=== PATIENT | female | born 1995 | race Caucasian/White ===

== ENCOUNTER 2017-09-27 13:51 | Day surgery (SDC) | payer OTHER, SELFPAY ==
[2017-09-07 16:06] VITALS: BMI 34.4
--- NOTE | 2017-09-27 | PATH_ITS ---
[facility] Accession Number: [id number] . 01 Material submitted: . PERITONEAL BIOPSY . 02 Diagnosis: Peritoneum, Biopsy: Fibrovascular tissue with no evidence of neoplasia or endometriosis. [facility]/09/30/2017 . 02 Electronically signed: . Nia Bass MD, Pathologist NPI- [id number] . 01 Gross description: . Received in formalin, labeled peritoneal biopsy, is a piece of membranous and fatty tissue (1.0 x 0.7 x 0.3 cm). The resection margin is inked black. Bisected and entirely submitted in cassette A1. ([id number]) /[facility] . 02 Microscopic: . Additional levels were examined. . 02 Pathologist provided ICD-10: R10.2 . 02 CPT . 694370 Performed at: 01 [facility] [address] [id number] MD Raimundo Patton MD Phone: [phone] Performed at: 02 [facility] [address] [place] [id number] MD Twin Song MD Phone: [phone]
[2017-09-27 14:20] VITALS: BP 117/69; PULSE 90; RESP 14; TEMP 36.2; O2SAT 99; BMI 34.4
[2017-09-27] MEDS: LACTATED RINGERS 1,000 ML 42 ML IV (14:24)
--- NOTE | 2017-09-27 15:25 | SUR.OPER ---
Lithotomy on padded OR bed, head on pillow, arms secured on padded arm boards at <90 degrees abduction. Legs secured in padded yellow fins stirrups.
[2017-09-27] MEDS: BUPIVACAINE 0.5% W/ EPI (PF) VIAL 30 ML INJ (15:38)
--- NOTE | 2017-09-27 16:01 | PM.PREOP ---
Pre-operative Note Interval Note Pre-op Check: Yes History & Physical Reviewed by Physician and Yes Exam Performed Changes: No H&P completed within 30 days and has changed as indicated here:: See note on 09/09/2017
[2017-09-27] MEDS: MEPERIDINE 25 MG/ML SYRINGE IV (16:04)
[2017-09-27] MEDS: fentaNYL 100 MCG/2 ML INJ 50 MCG IV ×2 (16:04→16:15)
[2017-09-27 16:05] VITALS: BP 114/79; BP 116/69; PULSE 100; PULSE 105; RESP 20; RESP 22; TEMP 36.7; O2SAT 97; O2SAT 98
--- NOTE | 2017-09-27 16:11 | P.OP_ITS ---
Operative Date/Time/Diagnoses Date of procedure: 09/27/17 Time of procedure: 16:04 Pre-op diagnosis: Pelvic pain, dysmenorrhea, and dyspareunia Post-op diagnosis: same Procedure & Clinicians Procedure: Laparoscopy with biopsy of peritoneum with drainage of ovarian cyst Same procedure as scheduled: Yes Indications: Long history of pelvic pain, dysmenorrhea, dyspareunia patient wanted to know if she had endometriosis Surgeon: Mary Ann Addison Click Yes if Unassisted: Yes Anesthesia Type: General Operative Notes Findings: Essentially normal pelvis with normal uterus tubes and ovaries. No definitive endometriosis, no scar tissue, no internal hernias. Normal appearing appendix and liver edge. A left ovarian cyst was drained of clear fluid. The left fallopian tube was scarred in a pocket behind the ovary in the broad ligament but unclear etiology almost appeared natural. Closure Type: primary Specimen(s): other (Peritoneal biopsy) Estimated Blood Loss (mL): 2 Blood products transfused: none Procedure in detail: Patient was brought to the operating room where she underwent general anesthesia. [facility] and prepped and draped in usual sterile fashion. Antibiotics were not indicated. Pulsatile stockings were in place and functional. Warming was with blankets. A single-tooth tenaculum was placed on the anterior lip of the cervix and the cervix dilated to #6 Hegar dilator. The Lashawn uterine manipulator was placed and balloon inflated with 3 mL of air. The area of the incisions were injected with half percent Marcaine with epinephrine. An incision was made in the umbilicus with a scalpel and the Verres needle placed in the abdomen. Confirmation of correct placement of the needle was performed by withdrawing on the syringe and then allowing fluid to fall freely through the needle. The abdomen was insufflated to 4 L of CO2. A 5 mm trocar was placed under direct visualization. 2 other 5 mm trochars were placed in the right and left lower quadrant. The left ovarian cyst was drained of clear fluid. An incision was made in the pocket of the left broad ligament in an attempt to free the left fallopian tube. A biopsy was performed of the peritoneum on the anterior bladder flap. Adequate hemostasis was noted. The CO2 was allowed to escape from the abdomen. The trochars were removed. Skin was closed with 4-0 Vicryl. The patient went to recovery room in good condition. Complications: none Condition: stable Disposition: same day surgery
[2017-09-27 16:14] VITALS: BP 131/60; PULSE 104; RESP 16; O2SAT 100
[2017-09-27] MEDS: LORazepam 2 MG/ML SYRINGE 0.25 MG IV (16:22)
[2017-09-27 16:23] VITALS: BP 101/55; PULSE 97; RESP 20; TEMP 36.9; O2SAT 100
[2017-09-27 16:28] VITALS: BP 108/67; PULSE 91; RESP 18; TEMP 36.8; O2SAT 99
[2017-09-27] MEDS: OXYCODONE/ACETAMINOPHEN 5/325 TABLET 1 TAB PO (16:44)
[2017-09-27 16:46] VITALS: BP 103/70; PULSE 99; RESP 16; TEMP 36.4; O2SAT 100
== END 2017-09-27 17:12 | disposition home or self-care (01) ==
PROVIDERS: Visit Provider Specialist
PROC: (CPT 49320; principal; 2017-09-27 15:00)
DX: N83.202 Unspecified ovarian cyst, left side (principal)
CPT/HCPCS: 49321; 49322; 88305; J1100; J2060; J2175; J2250; J2405; J2704; J3010

== ENCOUNTER → 2018-01-21 07:48 | Outpatient (CLI) | payer OTHER, SELFPAY ==
--- NOTE | 2018-01-21 | DI.MRI.S_ITS ---
PROCEDURE: MR PELIS WO/W CON INDICATIONS: Other specified disorders of urethra TECHNIQUE: Noncontrast coronal HASTE; 3-plane nonbreath-hold T2 FSE, axial T1 FSE with and without fat saturation obtained through the urethra and bladder. After the administration of contrast, axial and sagittal VIBE or 2-D FLASH with fat saturation obtained through the urethra and bladder. Optional diffusion weighted imaging or ADC may be performed. COMPARISON: None. FINDINGS: Image quality: Excellent. Urethra: Urethra is normal in caliber. No diverticula or masses identified. Genitalia: Vaginal wall are normal in thickness. Images through the upper vagina demonstrate no Franchesca's duct cyst. More inferior images through the vagina and labia demonstrate no Bartholin's gland cyst. Peritoneum and bowel: No pathologic free pelvic fluid. Visualized inferior colon loops, rectum, and anus appear normal. Note is made of a set of 2 adjacent left adnexal cysts the largest of which appears simple in character and measures up to 3.6 cm transverse, 4.3 cm AP and 3.4 cm craniocaudad. The immediate adjacent smaller cyst measures up to 3.0 cm in maximal dimension. That there is no sign of cyst rupture or hemorrhagic cyst contents. Soft tissues: Ischiorectal fossa appears normal in morphology. No adenopathy by size criteria. IMPRESSION: 1. Source of painful urination is not found. No urethral diverticulum is present. The bladder wall appears normal, no deep pelvic inflammation or underlying neoplasm is suspected. 2. Incidental finding is made of a set of 2 adjacent dominant left ovarian region cysts, the largest of which measures up to 4.3 cm in maximal dimension in the immediately adjacent smaller cyst measures up to 3.0 cm. There is no sign of recent cyst rupture or hemorrhage into this cyst. Dictated by: Dakota Cervantes M.D. on 01/21/2018 at 11:26 Approved by: Dakota Cervantes M.D. on 01/21/2018 at 11:31
== END ==
PROVIDERS: Visit Provider Urology
DX: N36.8 Other specified disorders of urethra (principal); N83.202 Unspecified ovarian cyst, left side
CPT/HCPCS: 72197; A9579

== ENCOUNTER 2018-02-03 10:02 | Emergency (ER) | payer OTHER, SELFPAY ==
[2018-02-03 10:36] VITALS: BP 109/65; PULSE 85; RESP 16; TEMP 36.5; O2SAT 100
[2018-02-03] MEDS: ONDANSETRON 4 MG/2 ML INJ IV (12:06)
[2018-02-03] MEDS: SODIUM CHLORIDE 0.9% 1,000 ML 1000 ML IV (12:06)
[2018-02-03 12:36] LABS: Add Manual Diff / Slide Review NO; Basophils Percent Auto 0.8 % (0-2); Eosinophils Percent Auto 1.7 % (2-4); Hemoglobin 13.2 g/dL (12.0-16.0); Lymphocytes Percent Auto 39.1 % (25-40); Mean Corpuscular HGB Conc 34.7 % (30-36); Mean Corpuscular Hemoglobin 30.1 PG (26-34); Mean Corpuscular Volume 86.5 fL (80-100); Monocytes Percent Auto 5.2 % (3-14); Neutrophils Absolute Auto 4000 /uL (3000-5900); Neutrophils Percent Auto 53.2 % (50-75); Platelet Count 369 X10^3/uL (150-400); Red Blood Cell Count 4.39 X10^6/uL (4.0-5.2); Red Cell Distribution Width 12.3 % (11.6-14.8); White Blood Cell Count 7.5 X10^3/uL (4.5-11.0)
--- NOTE | 2018-02-03 12:41 | ED_ITS ---
HPI - Nausea/Vomiting/Diarrhea General Chief complaint: Nausea/Vomiting/Diarrhea Stated complaint: THROWING UP Time Seen by Provider: 02/03/18 12:02 Source: patient Mode of arrival: ambulatory Limitations: no limitations History of Present Illness HPI Narrative: This is a 22-year-old female with 12 hr of nausea, vomiting and diarrhea. Patient was sweaty overnight but no documented fevers. Her nausea is a little bit better at this time. She states that [place] [employer] and can't call in sick to work without a work note so came to the ER. Patient states she has had a little bit urinary frequency and dysuria but this has been a chronic problem with recurrent bladder infections. Patient is not having any flank or back pain. She feels sore in her abdomen but no real pain. Patient denies any other symptoms, no other medical problems. She has had laparoscopic surgery for evaluation for endometriosis. Related Data Home Medications Medication Instructions Recorded Confirmed omeprazole 40 mg capsule,delayed 40 mg PO DAILY PRN 09/09/17 02/03/18 release drospirenone-ethinyl estradiol 1 tab PO QPM 02/03/18 02/03/18 [Germania (28)] ibuprofen 200 mg PO PRN PRN 02/03/18 02/03/18 Previous Rx's Medication Instructions Recorded lidocaine 2 % mucosal jelly 1 applictn TOP ONCE PRN #30 ml 09/01/17 amitriptyline 10 mg tablet 10 mg PO BEDTIME #30 tab 10/08/17 cephalexin [Keflex] 500 mg PO Q12H #6 cap 02/03/18 ondansetron HCl [Zofran] 4 mg PO QID PRN #5 tab 02/03/18 Allergies Allergy/AdvReac Type Severity Reaction Status Date / Time No Known Drug Allergies Allergy Verified 10/08/17 16:01 Review of Systems Review of Systems All systems reviewed & are unremarkable except as noted in HPI and below Constitutional Denies fever(s) and Reports night sweats Gastrointestinal Gastrointestinal: Denies abdominal pain, Denies melena, Denies hematochezia, Denies constipation, Reports diarrhea, Reports nausea and Reports vomiting Genitourinary Reports urinary frequency, Reports dysuria, Denies flank pain and Denies urinary urgency PFSH Medical History Depression (Acute) Dysuria (Acute) History of pyelonephritis (Acute) Migraines (Acute) Recurrent UTI (Acute) Surgical History History of cystoscopy (Acute) Social History Smoking Status: Current every day smoker Exam Narrative Exam Narrative: GENERAL: Alert and oriented x three, Well-nourished, well- appearing female in mild distress HEENT: Head normocephalic, atraumatic, EOMI, pupils reactive, face symmetric, moist mucous membranes NECK: Supple, full range of motion CARDIOVASCULAR: Regular rate and rhythm without murmurs, rubs or gallops. RESPIRATORY: Breath sounds equal bilaterally, no wheezes rales or rhonchi. ABDOMEN: Soft, nontender. Normoactive bowel sounds all 4 quadrants. No guarding or rebound, rigidity, no mass : No CVA tenderness EXTREMITIES: Normal range of motion, no clubbing or edema. Neurovascularly intact NEUROLOGICAL: Cranial nerves II through XII grossly intact. Moving all extremities SKIN: Warm, dry, no petechiae, no rashes or lesions. Initial Vital Signs Initial Vital Signs: Vital Signs Temperature 97.7 F 02/03/18 10:36 Pulse Rate 85 02/03/18 10:36 Respiratory Rate 16 02/03/18 10:36 Blood Pressure 109/65 02/03/18 10:36 Pulse Oximetry 100 02/03/18 10:36 Course Orders Ordered: ED Orders 02/03/18 11:45 Complete Blood Count AUTO DIFF Stat Comprehensive Metabolic Panel Stat Lipase Stat 02/03/18 13:07 Urine Culture Stat Urine Microscopic Stat Discontinued Medications Sodium Chloride (Normal Saline 0.9%) 1,000 mls @ 1,000 mls/hr IV BOLUS ONE Stop: 02/03/18 13:02 Last Infusion: 02/03/18 13:53 Dose: 0 mls/hr Admin: 02/03/18 12:06 Dose: 1,000 mls/hr Ondansetron HCl (Zofran) 4 mg IV NOW ONE Stop: 02/03/18 12:04 Last Admin: 02/03/18 12:06 Dose: 4 mg Vital Signs - 8 hr 02/03/18 12:55 11/29/18 13:47 02/03/18 14:19 Pulse Rate 76 72 75 Respiratory Rate 18 15 16 Blood Pressure 120/76 Blood Pressure [Left Arm] 118/56 L 111/57 L Pulse Oximetry 99 97 98 MDM - Nausea/Vomiting/Diarrhea Lab Data Attestation: I reviewed the patient's lab results. Result diagrams: 02/03/18 11:45 02/03/18 11:45 Lab Results 02/03/18 02/03/18 02/03/18 Range/Units 11:45 11:45 13:07 WBC 7.5 (4.5-11.0) X10^3/uL RBC 4.39 (4.0-5.2) X10^6/uL Hgb 13.2 (12.0-16.0) g/dL Hct 38.0 (36-46) % MCV 86.5 (80-100) fL MCH 30.1 (26-34) PG MCHC 34.7 (30-36) % RDW 12.3 (11.6-14.8) % Plt Count 369 (150-400) X10^3/uL Neut % (Auto) 53.2 (50-75) % Lymph % (Auto) 39.1 (25-40) % [place] % (Auto) 5.2 (3-14) % Eos % (Auto) 1.7 L (2-4) % Baso % (Auto) 0.8 (0-2) % Neut # (Auto) 4000 (3544-8066) /uL Sodium 141 (137-145) mmol/L Potassium 4.2 (3.4-5.1) mmol/L Chloride 106 (98-107) mmol/L Carbon Dioxide 22 (22-32) mmol/L BUN 10 (7-17) mg/dL Creatinine 0.70 (0.52-1.04) mg/dL Estimated GFR > 60.0 (>60) mL/min BUN/Creatinine Ratio 14.3 (6-22) Glucose 91 (70-100) mg/dL Calcium 9.2 (8.4-10.2) mg/dL Total Bilirubin 0.7 (0.2-1.3) mg/dL AST 36 (14-36) IU/L ALT 43 (9-52) IU/L Alkaline Phosphatase 73 (38-126) U/L Total Protein 7.6 (6.3-8.2) g/dL Albumin 4.3 (3.5-5.0) g/dL Globulin 3.3 (1.7-4.1) g/dL Albumin/Globulin Ratio 1.3 (1.0-2.8) Lipase 49 (23-300) U/L Urine RBC None seen (0-5/HPF) Urine WBC 1-5/hpf (0-5/HPF) Ur Squamous Epith Cells 1-5 /hpf Amorphous Sediment 1+ Urine Bacteria Few (2-10) H (None) Urine Mucus 1+ H (Negative) Ur Culture Indicated? Specimen cultured Micro UA Comment Not Reportable Point of Care Testing Test Results Negative Urine Dip Bedside Urine Glucose Negative Bedside Urine Bilirubin - Negative Bedside Urine Ketone - Negative Urine Specific [place]gins 1.015 Bedside Urine Occult Blood - Negative Bedside Urine pH 7.0 Bedside Urine Protein - Negative Bedside Urine Urobilinogen - Negative Bedside Urine Nitrite + Positive Bedside Urine Leukocytes +/- 15 Esterase MDM Narrative Medical decision making narrative: Urine shows signs consistent with UTI, patient states she has had recurrent UTIs does not know what antibiotic she has been on. She does not know if she has had any resistance. Lab work otherwise appears fairly normal patient has not had any emesis in the department. Started oral antibiotics with some Zofran for nausea. Patient to follow up as outpatient. Discussed reasons to return and signs and symptoms to watch for. Discharge Plan Departure Patient Disposition: Home Clinical Impression: Vomiting and diarrhea, UTI (urinary tract infection) Discharge Date/Time: 02/03/18 14:20 Interventions: ED Discharge Assessment Last Done: 02/03/18 14:19 Instructions: DI for Vomiting -- Adult Activity Restrictions/Additional Instructions: Follow-up in the next 3-5 days for recheck and repeat evaluation of your urine. Your urine was sent for culture today. Take antibiotics until they are completely gone. Take Zofran sublingually every 6 hr as needed for nausea or right before you take your antibiotics. Return to the emergency department for persistent fevers, rapidly worsening symptoms, persistent vomiting, black or bloody stools, back or flank pain or other new or concerning symptoms. Prescriptions: New ondansetron HCl [Zofran] 4 mg tablet 4 mg PO QID PRN (Reason: nausea and vomiting) Qty: 5 RF: 0 cephalexin [Keflex] 500 mg capsule 500 mg PO Q12H Qty: 6 RF: 0 No Action lidocaine HCl 2 % jelly 1 applictn TOP ONCE PRN (Reason: pain) Qty: 30 RF: 3 omeprazole 40 mg capsule,delayed release(DR/EC) 40 mg PO DAILY PRN (Reason: Heartburn) RF: 0 amitriptyline 10 mg tablet 10 mg PO BEDTIME Qty: 30 RF: 11 ibuprofen 200 mg Tablet 200 mg PO PRN PRN (Reason: pain) RF: 0 drospirenone-ethinyl estradiol [Germania (28)] 3-0.03 mg tablet 1 tab PO QPM RF: 0
[2018-02-03 12:42] LABS: Alanine Aminotransferase 43 IU/L (9-52); Albumin 4.3 g/dL (3.5-5.0); Albumin Globulin Ratio 1.3 (1.0-2.8); Alkaline Phosphatase 73 U/L (38-126); Aspartate Aminotransferase 36 IU/L (14-36); BUN Creatinine Ratio 14.3 (6-22); Bilirubin Total 0.7 mg/dL (0.2-1.3); Blood Urea Nitrogen 10 mg/dL (7-17); Calcium 9.2 mg/dL (8.4-10.2); Carbon Dioxide 22 mmol/L (22-32); Chloride 106 mmol/L (98-107); Estimated Glomerular Filt Rate > 60.0 mL/min (>60); Globulin 3.3 g/dL (1.7-4.1); Glucose 91 mg/dL (70-100); HEMOLYSIS < 15 (0-50); Lipase 49 U/L (23-300); Potassium 4.2 mmol/L (3.4-5.1); Sodium 141 mmol/L (137-145); Total Protein 7.6 g/dL (6.3-8.2)
[2018-02-03 12:55] VITALS: BP 118/56; PULSE 76; RESP 18; O2SAT 99
[2018-02-03 13:11] LABS: RBC Urine None Seen (0-5/HPF)
[2018-02-03 13:31] LABS: Amorphous Sediment Urine 1+; Bacteria Urine Few (2-10); Culture Indicated Urine Specimen Cultured; Mucus Urine 1+ (Negative); Squamous Epithelial Cell Urine 1-5 /HPF; WBC Urine 1-5/HPF (0-5/HPF)
[2018-02-03 13:47] VITALS: BP 111/57; PULSE 72; RESP 15; O2SAT 97
[2018-02-03 14:19] VITALS: BP 120/76; PULSE 75; RESP 16; O2SAT 98
== END 2018-02-03 14:20 | disposition home or self-care (01) ==
PROVIDERS: Emergency Provider Emergency Medicine
DX: N39.0 Urinary tract infection, site not specified (principal); R19.7 Diarrhea, unspecified; R11.10 Vomiting, unspecified
CPT/HCPCS: 80053; 81003; 81015; 81025; 83690; 85025; 87077; 87086; 87186; 96361; 96374; 99283; 99284; J2405

== ENCOUNTER 2018-02-21 10:31 | Emergency (ER) | payer OTHER, SELFPAY ==
[2018-02-21 10:59] VITALS: BP 127/74; PULSE 86; RESP 13; TEMP 36.6; O2SAT 97
--- NOTE | 2018-02-21 12:05 | ED.ABDPAIN ---
HPI - Abdominal Pain <Radha Romero PA-C - Last Filed: 02/21/18 20:35> General Chief Complaint: Abdominal Pain Stated Complaint: SHOOTING PAINS IN BACK AND STOMACH Time Seen by Provider: 02/21/18 11:54 Source: patient Mode of arrival: ambulatory Limitations: no limitations History of Present Illness HPI narrative: This 22-year-old female comes to ED due to persistent abdominal pain. She states that this started 6 days ago. It is intermittent, sharp, feels in her pelvic area and low back, she thinks more on the right side in her back. She states that sometimes the pains occur together and sometimes separately. They wax and wane. She was seen at [facility] last Wednesday and was told no further testing to offer there. She decided to monitor and pain was better the next couple of days, worse on Wednesday, better over the weekend. It has worsened again today. She states that there are no exacerbating or alleviating features to pain. She states that she has not had nausea or vomiting and has been eating normally. She has had soft stools multiple times daily since this started, but no mayda diarrhea. She has a history of chronic hematuria intermittently, chronic dysuria and chronic urgency which have not acutely changed. She denies any increased urinary frequency. She denies any STD concerns or vaginal discharge, states she has menses now. She denies fever. She denies acid reflux symptoms which she has had in the past. Denies chest pain, dyspnea. She denies any known exposures or recent travel. She does eat fast food for early frequently but cannot say whether there is a correlation. She states this does not feel like previous kidney infections, somewhat like previous ovarian cyst. Also thinks she may have a history of some gallbladder issues. Related Data Home Medications Medication Instructions Recorded Confirmed omeprazole 40 mg capsule,delayed 40 mg PO DAILY PRN 09/09/17 02/21/18 release ibuprofen 200 mg PO PRN PRN 02/03/18 02/21/18 Vitamin D3 1 cap PO DAILY 02/21/18 02/21/18 acetaminophen [Mapap 1 dose PO PRN PRN 02/21/18 02/21/18 (acetaminophen)] celecoxib 100 mg PO QID PRN 02/21/18 02/21/18 drospirenone-ethinyl estradiol 1 tab PO QPM 02/21/18 02/21/18 [Germania (28)] multivitamin 1 tab PO DAILY 02/21/18 02/21/18 Previous Rx's Medication Instructions Recorded lidocaine 2 % mucosal jelly 1 applictn TOP ONCE PRN #30 ml 09/01/17 cyclobenzaprine 10 mg PO Q8H #10 tab 02/21/18 hydrocodone-acetaminophen [[place]] 1 tab PO Q6H PRN #7 tab 02/21/18 Allergies Allergy/AdvReac Type Severity Reaction Status Date / Time No Known Drug Allergies Allergy Verified 10/08/17 16:01 Review of Systems <Radha Romero PA-C - Last Filed: 02/21/18 20:35> Review of Systems All systems reviewed & are unremarkable except as noted in HPI and below Exam <Radha Romero PA-C - Last Filed: 02/21/18 20:35> Narrative Exam Narrative: GENERAL APPEARANCE: Patient sitting comfortably, in no distress. HEENT: PERRL, EOMI, no scleral icterus, normal oropharynx NECK: Supple LUNGS: Clear to auscultation bilaterally. HEART: Rate and rhythm regular, normal S1 and S2, no S3 or S4. ABDOMEN: Soft, nondistended, bowel sounds present x 4 quadrants, no masses palpable, no hepatosplenomegaly. Generalized tenderness most focused over the bilateral adnexal areas and also the right upper quadrant at the costal margin, +Edwards's sign, no CVAT EXTREMITIES: No edema, no cyanosis, no calf tenderness DERMATOLOGIC: No jaundice or exanthem NEUROLOGIC: Alert and oriented with normal speech and coordination MUSCULOSKELETAL: Mild generalized tenderness in the right lumbar musculature, no tenderness elsewhere. Normal trunk range of motion Initial Vital Signs Initial Vital Signs: Vital Signs Temperature 97.8 F 02/21/18 10:59 Pulse Rate 86 02/21/18 10:59 Respiratory Rate 13 02/21/18 10:59 Blood Pressure 127/74 02/21/18 10:59 Pulse Oximetry 97 02/21/18 10:59 <Ivy Rice DO - Last Filed: 02/22/18 08:07> Initial Vital Signs Initial Vital Signs: Vital Signs Temperature 97.8 F 02/21/18 10:59 Pulse Rate 86 02/21/18 10:59 Respiratory Rate 13 02/21/18 10:59 Blood Pressure 127/74 02/21/18 10:59 Pulse Oximetry 97 02/21/18 10:59 Course <Radha Romero PA-C - Last Filed: 02/21/18 20:35> Additional Information: Reviewed finding of left ovarian probable complex/hemorrhagic cyst on ultrasound. She states that this has been present for some time on her previous imaging. We discussed not clear whether this is the source of her pain, but needs close follow-up and referral back to dioramist if not getting better. Since she has had some new back pain with this intermittently, she will follow up with her PCP 1st and then see Dr. Addison again if needed. She agreed to return to the ED if any acutely worsening symptoms in the interim Orders Ordered: Discontinued Medications Ibuprofen (Motrin Susp) 905 mg 10 mg/kg (905 mg) PO NOW ONE Stop: 02/21/18 11:33 Last Admin: 02/21/18 11:36 Dose: Ketorolac Tromethamine (Toradol) 30 mg IV NOW ONE Stop: 02/21/18 12:22 Last Admin: 02/21/18 12:51 Dose: 30 mg Vital Signs - 8 hr 02/21/18 13:43 Pulse Rate 88 Respiratory Rate 15 Blood Pressure [Left Arm] 110/74 Pulse Oximetry 100 <Ivy Rice DO - Last Filed: 02/22/18 08:07> Orders Ordered: Discontinued Medications Ibuprofen (Motrin Susp) 905 mg 10 mg/kg (905 mg) PO NOW ONE Stop: 02/21/18 11:33 Last Admin: 02/21/18 11:36 Dose: Ketorolac Tromethamine (Toradol) 30 mg IV NOW ONE Stop: 02/21/18 12:22 Last Admin: 02/21/18 12:51 Dose: 30 mg Vital Signs - 8 hr 02/21/18 13:43 Pulse Rate 88 Respiratory Rate 15 Blood Pressure [Left Arm] 110/74 Pulse Oximetry 100 MDM - Abdominal Pain <Radha Romero PA-C - Last Filed: 02/21/18 20:35> Lab Data Attestation: I reviewed the patient's lab results. Result diagrams: 02/21/18 11:48 02/21/18 11:48 Lab Results 12/17/18 12/17/18 Range/Units 11:48 11:48 WBC 7.0 (4.5-11.0) X10^3/uL RBC 4.20 (4.0-5.2) X10^6/uL Hgb 12.4 (12.0-16.0) g/dL Hct 36.7 (36-46) % MCV 87.4 (80-100) fL MCH 29.4 (26-34) PG MCHC 33.7 (30-36) % RDW 12.2 (11.6-14.8) % Plt Count 319 (150-400) X10^3/uL Neut % (Auto) 60.0 (50-75) % Lymph % (Auto) 32.1 (25-40) % Coffey % (Auto) 6.0 (3-14) % Eos % (Auto) 1.3 L (2-4) % Baso % (Auto) 0.6 (0-2) % Neut # (Auto) 4200 (8323-8267) /uL Sodium 141 (137-145) mmol/L Potassium 4.1 (3.4-5.1) mmol/L Chloride 105 (98-107) mmol/L Carbon Dioxide 26 (22-32) mmol/L BUN 13 (7-17) mg/dL Creatinine 0.70 (0.52-1.04) mg/dL Estimated GFR > 60.0 (>60) mL/min BUN/Creatinine Ratio 18.6 (6-22) Glucose 104 H (70-100) mg/dL Calcium 9.1 (8.4-10.2) mg/dL Total Bilirubin 0.4 (0.2-1.3) mg/dL AST 24 (14-36) IU/L ALT 23 (9-52) IU/L Alkaline Phosphatase 61 (38-126) U/L Total Protein 6.9 (6.3-8.2) g/dL Albumin 3.8 (3.5-5.0) g/dL Globulin 3.1 (1.7-4.1) g/dL Albumin/Globulin Ratio 1.2 (1.0-2.8) Lipase 49 (23-300) U/L Point of care testing: Point of Care Testing Test Results Negative Urine Dip Bedside Urine Glucose Negative Bedside Urine Bilirubin - Negative Bedside Urine Ketone - Negative Urine Specific Phil Campbell 1.030 Bedside Urine Occult Blood - Negative Bedside Urine pH 6.0 Bedside Urine Protein - Negative Bedside Urine Urobilinogen - Negative Bedside Urine Nitrite - Negative Bedside Urine Leukocytes - Negative Esterase Imaging Data US - abdomen: Radiologist's impression: [address] [address] Ultrasound Report Signed Patient: Lynn Hurtado MR#: [id number] : 1995 Acct:[id number] Age/Sex: 22 / F Date of Service: 02/21/18 Loc: ED Accession Number: [id number] Procedure: US abdomen complete Ordering Provider: Radha Romero P.A-C PROCEDURE: US ABDOMEN COMPLETE INDICATIONS: RIGHT UPPER QUADRANT PAIN TECHNIQUE: Real-time scanning was performed of the abdominal and retroperitoneal organs, with image documentation. COMPARISON: None. FINDINGS: Liver: Liver is normal in size and homogeneous in echotexture. Gallbladder: No gallstones. No gallbladder wall thickening, pericholecystic fluid or sonographic Edwards's sign. Biliary ducts: Intrahepatic bile ducts are non-dilated. Extrahepatic bile duct caliber measures 3.6 mm. Normal is 6-7 mm or less in diameter, or 10 mm or less post-cholecystectomy. Pancreas: Visualized portions of the pancreas are sonographically normal. Spleen: Spleen is normal in size and homogeneous in echotexture. Kidneys: Kidneys are normal in size and echotexture. Right kidney measures 9.9 cm long; left kidney measures 10.3 cm long. No hydronephrosis or nephrolithiasis. No solid masses. Aorta: Visualized aorta is normal in caliber at less than 3 cm. Iliacs: Proximal common iliac arteries are normal in caliber at less than 2.5 cm. IVC: Intrahepatic inferior vena cava is patent. Miscellaneous: No free abdominal fluid. IMPRESSION: Normal abdominal ultrasound exam. A cause for right upper quadrant pain is not identified. Dictated by: Sam Avina M.D. on 02/21/2018 at 14:29 Approved by: Sam Avina M.D. on 02/21/2018 at 14:31 pelvis: Radiologist's impression: Launch Image View Report History Print [address] [address] Ultrasound Report Signed Patient: Lynn Hurtado MR#: [id number] : 1995 Acct:[id number] Age/Sex: 22 / F Date of Service: 02/21/18 Loc: ED Accession Number: [id number] Procedure: US pelvic complete Ordering Provider: Radha Romero P.A-C PROCEDURE: US PELVIC COMPLETE INDICATIONS: PAIN TECHNIQUE: Real-time scanning was performed of the pelvic organs, with image documentation. Additional endovaginal scanning was necessary due to incomplete visualization of the adnexal and endometrial structures by transabdominal scanning. COMPARISON: [facility], MR, MR PELVIS WO/W CON, 01/21/2018, 8:09. FINDINGS: Transabdominal scanning: Limited scanning through the kidneys shows no hydronephrosis. Small amount of free pelvic fluid is within physiologic limits. Endovaginal scanning: Uterus: Uterus is normal in size at 6.1 x 3.3 x 4.4 cm. The endometrium measures 4.8 mm in combined thickness. Ovaries: Right ovary is not identified. Left ovary measures 5.7 x 2.7 x 4.4 cm. There is a complex, non-vascular hypoechoic mass in the left adnexa measuring 5.0 x 3.6 x 3.8 cm with internal echo but no vascularity, most likely a project cyst. IMPRESSION: 1. A 5.0 x 3.6 x 3.8 cm complex, non-vascular , hypoechoic mass in the left adnexa, probably a hemorrhagic cyst. Ovarian torsion, although not excluded, is felt less likely. 2. Nonvisualization of the right ovary. 3. Normal uterus. Dictated by: Sam Avina M.D. on 02/21/2018 at 14:31 Approved by: Sam Avina M.D. on 02/21/2018 at 14:39 <Ivy Rice DO - Last Filed: 02/22/18 08:07> Lab Data Lab Results 02/21/18 02/21/18 Range/Units 11:48 11:48 WBC 7.0 (4.5-11.0) X10^3/uL RBC 4.20 (4.0-5.2) X10^6/uL Hgb 12.4 (12.0-16.0) g/dL Hct 36.7 (36-46) % MCV 87.4 (80-100) fL MCH 29.4 (26-34) PG MCHC 33.7 (30-36) % RDW 12.2 (11.6-14.8) % Plt Count 319 (150-400) X10^3/uL Neut % (Auto) 60.0 (50-75) % Lymph % (Auto) 32.1 (25-40) % Coffey % (Auto) 6.0 (3-14) % Eos % (Auto) 1.3 L (2-4) % Baso % (Auto) 0.6 (0-2) % Neut # (Auto) 4200 (2313-4439) /uL Sodium 141 (137-145) mmol/L Potassium 4.1 (3.4-5.1) mmol/L Chloride 105 (98-107) mmol/L Carbon Dioxide 26 (22-32) mmol/L BUN 13 (7-17) mg/dL Creatinine 0.70 (0.52-1.04) mg/dL Estimated GFR > 60.0 (>60) mL/min BUN/Creatinine Ratio 18.6 (6-22) Glucose 104 H (70-100) mg/dL Calcium 9.1 (8.4-10.2) mg/dL Total Bilirubin 0.4 (0.2-1.3) mg/dL AST 24 (14-36) IU/L ALT 23 (9-52) IU/L Alkaline Phosphatase 61 (38-126) U/L Total Protein 6.9 (6.3-8.2) g/dL Albumin 3.8 (3.5-5.0) g/dL Globulin 3.1 (1.7-4.1) g/dL Albumin/Globulin Ratio 1.2 (1.0-2.8) Lipase 49 (23-300) U/L Point of care testing: Point of Care Testing Test Results Negative Urine Dip Bedside Urine Glucose Negative Bedside Urine Bilirubin - Negative Bedside Urine Ketone - Negative Urine Specific Phil Campbell 1.030 Bedside Urine Occult Blood - Negative Bedside Urine pH 6.0 Bedside Urine Protein - Negative Bedside Urine Urobilinogen - Negative Bedside Urine Nitrite - Negative Bedside Urine Leukocytes - Negative Esterase Discharge Plan Departure Patient Disposition: Home Clinical Impression: Pelvic pain, Low back pain Discharge Date/Time: 02/21/18 14:15 Interventions: ED Discharge Assessment Last Done: 02/21/18 14:08 Instructions: DI for Low Back Pain, DI for Pelvic Pain Activity Restrictions/Additional Instructions: The emergency room technician saw a cyst on your left ovary today which may or may not be the same as the cyst that was seen on your MRI last month. It is not clear whether this is the source of your pelvic pain. Your gallbladder and other organs appeared normal. There are no acute problems found on your lab work. Your back pain could be related to this or may be due to muscle spasm. Please continue Celebrex once daily, and you can and the prescription hydrocodone/acetaminophen and muscle relaxant cyclobenzaprine to see if these are helpful. Remember those may make you sleepy and not to drive. I will phone you if the radiologist finds anything different on your ultrasound then we talked about. [place] 2 to determine whether these medicines are helping you and whether any further testing is needed. You should return here if you have acutely worsening symptoms, or new symptoms with her pain such as fever or vomiting. Prescriptions: New cyclobenzaprine 10 mg tablet 10 mg PO Q8H Qty: 10 RF: 0 hydrocodone-acetaminophen [[place]] 5-325 mg tablet 1 tab PO Q6H PRN (Reason: back and pelvic pain acute) Qty: 7 RF: 0 No Action lidocaine HCl 2 % jelly 1 applictn TOP ONCE PRN (Reason: pain) Qty: 30 RF: 3 omeprazole 40 mg capsule,delayed release(DR/EC) 40 mg PO DAILY PRN (Reason: Heartburn) RF: 0 ibuprofen 200 mg Tablet 200 mg PO PRN PRN (Reason: pain) RF: 0 acetaminophen [Mapap (acetaminophen)] 325 mg tablet 1 dose PO PRN PRN (Reason: Fever Or Pain) RF: 0 celecoxib 100 mg capsule 100 mg PO QID PRN (Reason: pain) RF: 0 drospirenone-ethinyl estradiol [Germania (28)] 3-0.03 mg tablet 1 tab PO QPM RF: 0 multivitamin Tablet 1 tab PO DAILY RF: 0 Vitamin D3 1 cap PO DAILY RF: 0 Referrals: [facility] [Outside] Mary Ann Addison MD [Physician] - Stand Alone Forms: Work Release Note <Ivy Rice DO - Last Filed: 02/22/18 08:07> Cosign ED Attending Cossiriature Attestation: I was immediately available in the department for consultation. Documentation has been reviewed. I agree with assessment and plan.
--- NOTE | 2018-02-21 12:21 | DI.US.S_ITS ---
PROCEDURE: US ABDOMEN COMPLETE INDICATIONS: RIGHT UPPER QUADRANT PAIN TECHNIQUE: Real-time scanning was performed of the abdominal and retroperitoneal organs, with image documentation. COMPARISON: None. FINDINGS: Liver: Liver is normal in size and homogeneous in echotexture. Gallbladder: No gallstones. No gallbladder wall thickening, pericholecystic fluid or sonographic Edwards's sign. Biliary ducts: Intrahepatic bile ducts are non-dilated. Extrahepatic bile duct caliber measures 3.6 mm. Normal is 6-7 mm or less in diameter, or 10 mm or less post-cholecystectomy. Pancreas: Visualized portions of the pancreas are sonographically normal. Spleen: Spleen is normal in size and homogeneous in echotexture. Kidneys: Kidneys are normal in size and echotexture. Right kidney measures 9.9 cm long; left kidney measures 10.3 cm long. No hydronephrosis or nephrolithiasis. No solid masses. Aorta: Visualized aorta is normal in caliber at less than 3 cm. Iliacs: Proximal common iliac arteries are normal in caliber at less than 2.5 cm. IVC: Intrahepatic inferior vena cava is patent. Miscellaneous: No free abdominal fluid. IMPRESSION: Normal abdominal ultrasound exam. A cause for right upper quadrant pain is not identified. Dictated by: Sam Avina M.D. on 02/21/2018 at 14:29 Approved by: Sam Avina M.D. on 02/21/2018 at 14:31
--- NOTE | 2018-02-21 12:21 | DI.US.S_ITS ---
PROCEDURE: US PELVIC COMPLETE INDICATIONS: PAIN TECHNIQUE: Real-time scanning was performed of the pelvic organs, with image documentation. Additional endovaginal scanning was necessary due to incomplete visualization of the adnexal and endometrial structures by transabdominal scanning. COMPARISON: [facility], MR, MR PELVIS WO/W CON, 01/21/2018, 8:09. FINDINGS: Transabdominal scanning: Limited scanning through the kidneys shows no hydronephrosis. Small amount of free pelvic fluid is within physiologic limits. Endovaginal scanning: Uterus: Uterus is normal in size at 6.1 x 3.3 x 4.4 cm. The endometrium measures 4.8 mm in combined thickness. Ovaries: Right ovary is not identified. Left ovary measures 5.7 x 2.7 x 4.4 cm. There is a complex, non-vascular hypoechoic mass in the left adnexa measuring 5.0 x 3.6 x 3.8 cm with internal echo but no vascularity, most likely a project cyst. IMPRESSION: 1. A 5.0 x 3.6 x 3.8 cm complex, non-vascular , hypoechoic mass in the left adnexa, probably a hemorrhagic cyst. Ovarian torsion, although not excluded, is felt less likely. 2. Nonvisualization of the right ovary. 3. Normal uterus. Dictated by: Sam Avina M.D. on 02/21/2018 at 14:31 Approved by: Sam Avina M.D. on 02/21/2018 at 14:39
--- NOTE | 2018-02-21 12:31 | ED_ITS ---
HPI - Abdominal Pain <Radha Romero PA-C - Last Filed: 02/21/18 20:35> General Chief Complaint: Abdominal Pain Stated Complaint: SHOOTING PAINS IN BACK AND STOMACH Time Seen by Provider: 02/21/18 11:54 Source: patient Mode of arrival: ambulatory Limitations: no limitations History of Present Illness HPI narrative: This 22-year-old female comes to ED due to persistent abdominal pain. She states that this started 6 days ago. It is intermittent, sharp, feels in her pelvic area and low back, she thinks more on the right side in her back. She states that sometimes the pains occur together and sometimes separately. They wax and wane. She was seen at [facility] last Wednesday and was told no further testing to offer there. She decided to monitor and pain was better the next couple of days, worse on Wednesday, better over the weekend. It has worsened again today. She states that there are no exacerbating or alleviating features to pain. She states that she has not had nausea or vomiting and has been eating normally. She has had soft stools multiple times daily since this started, but no mayda diarrhea. She has a history of chronic hematuria intermittently, chronic dysuria and chronic urgency which have not acutely changed. She denies any increased urinary frequency. She denies any STD concerns or vaginal discharge, states she has menses now. She denies fever. She denies acid reflux symptoms which she has had in the past. Denies chest pain, dyspnea. She denies any known exposures or recent travel. She does eat fast food for early frequently but cannot say whether there is a correlation. She states this does not feel like previous kidney infections, somewhat like previous ovarian cyst. Also thinks she may have a history of some gallbladder issues. Related Data Home Medications Medication Instructions Recorded Confirmed omeprazole 40 mg capsule,delayed 40 mg PO DAILY PRN 09/09/17 02/21/18 release ibuprofen 200 mg PO PRN PRN 02/03/18 02/21/18 Vitamin D3 1 cap PO DAILY 02/21/18 02/21/18 acetaminophen [Mapap 1 dose PO PRN PRN 02/21/18 02/21/18 (acetaminophen)] celecoxib 100 mg PO QID PRN 02/21/18 02/21/18 drospirenone-ethinyl estradiol 1 tab PO QPM 02/21/18 02/21/18 [[place] (28)] multivitamin 1 tab PO DAILY 02/21/18 02/21/18 Previous Rx's Medication Instructions Recorded lidocaine 2 % mucosal jelly 1 applictn TOP ONCE PRN #30 ml 09/01/17 cyclobenzaprine 10 mg PO Q8H #10 tab 02/21/18 hydrocodone-acetaminophen [[place]] 1 tab PO Q6H PRN #7 tab 02/21/18 Allergies Allergy/AdvReac Type Severity Reaction Status Date / Time No Known Drug Allergies Allergy Verified 10/08/17 16:01 Review of Systems <Radha Romero PA-C - Last Filed: 02/21/18 20:35> Review of Systems All systems reviewed & are unremarkable except as noted in HPI and below Exam <Radha Romero PA-C - Last Filed: 02/21/18 20:35> Narrative Exam Narrative: GENERAL APPEARANCE: Patient sitting comfortably, in no distress. HEENT: PERRL, EOMI, no scleral icterus, normal oropharynx NECK: Supple LUNGS: Clear to auscultation bilaterally. HEART: Rate and rhythm regular, normal S1 and S2, no S3 or S4. ABDOMEN: Soft, nondistended, bowel sounds present x 4 quadrants, no masses palpable, no hepatosplenomegaly. Generalized tenderness most focused over the bilateral adnexal areas and also the right upper quadrant at the costal margin, +Edwards's sign, no CVAT EXTREMITIES: No edema, no cyanosis, no calf tenderness DERMATOLOGIC: No jaundice or exanthem NEUROLOGIC: Alert and oriented with normal speech and coordination MUSCULOSKELETAL: Mild generalized tenderness in the right lumbar musculature, no tenderness elsewhere. Normal trunk range of motion Initial Vital Signs Initial Vital Signs: Vital Signs Temperature 97.8 F 02/21/18 10:59 Pulse Rate 86 02/21/18 10:59 Respiratory Rate 13 02/21/18 10:59 Blood Pressure 127/74 02/21/18 10:59 Pulse Oximetry 97 02/21/18 10:59 <Ivy Rice DO - Last Filed: 02/22/18 08:07> Initial Vital Signs Initial Vital Signs: Vital Signs Temperature 97.8 F 02/21/18 10:59 Pulse Rate 86 02/21/18 10:59 Respiratory Rate 13 02/21/18 10:59 Blood Pressure 127/74 02/21/18 10:59 Pulse Oximetry 97 02/21/18 10:59 Course <Radha Romero PA-C - Last Filed: 02/21/18 20:35> Additional Information: Reviewed finding of left ovarian probable complex/ hemorrhagic cyst on ultrasound. She states that this has been present for some time on her previous imaging. We discussed not clear whether this is the source of her pain, but needs close follow-up and referral back to handbook writer if not getting better. Since she has had some new back pain with this intermittently, she will follow up with her PCP 1st and then see Dr. Addison again if needed. She agreed to return to the ED if any acutely worsening symptoms in the interim Orders Ordered: Discontinued Medications Ibuprofen (Motrin Susp) 905 mg 10 mg/kg (905 mg) PO NOW ONE Stop: 02/21/18 11:33 Last Admin: 02/21/18 11:36 Dose: Ketorolac Tromethamine (Toradol) 30 mg IV NOW ONE Stop: 02/21/18 12:22 Last Admin: 02/21/18 12:51 Dose: 30 mg Vital Signs - 8 hr 02/21/18 13:43 Pulse Rate 88 Respiratory Rate 15 Blood Pressure [Left Arm] 110/74 Pulse Oximetry 100 <Ivy Rice DO - Last Filed: 02/22/18 08:07> Orders Ordered: Discontinued Medications Ibuprofen (Motrin Susp) 905 mg 10 mg/kg (905 mg) PO NOW ONE Stop: 02/21/18 11:33 Last Admin: 02/21/18 11:36 Dose: Ketorolac Tromethamine (Toradol) 30 mg IV NOW ONE Stop: 02/21/18 12:22 Last Admin: 02/21/18 12:51 Dose: 30 mg Vital Signs - 8 hr 02/21/18 13:43 Pulse Rate 88 Respiratory Rate 15 Blood Pressure [Left Arm] 110/74 Pulse Oximetry 100 MDM - Abdominal Pain <Radha Romero PA-C - Last Filed: 02/21/18 20:35> Lab Data Attestation: I reviewed the patient's lab results. Result diagrams: 02/21/18 11:48 02/21/18 11:48 Lab Results 12/17/18 12/17/18 Range/Units 11:48 11:48 WBC 7.0 (4.5-11.0) X10^3/uL RBC 4.20 (4.0-5.2) X10^6/uL Hgb 12.4 (12.0-16.0) g/dL Hct 36.7 (36-46) % MCV 87.4 (80-100) fL MCH 29.4 (26-34) PG MCHC 33.7 (30-36) % RDW 12.2 (11.6-14.8) % Plt Count 319 (150-400) X10^3/uL Neut % (Auto) 60.0 (50-75) % Lymph % (Auto) 32.1 (25-40) % [place] % (Auto) 6.0 (3-14) % Eos % (Auto) 1.3 L (2-4) % Baso % (Auto) 0.6 (0-2) % Neut # (Auto) 4200 (5560-3994) /uL Sodium 141 (137-145) mmol/L Potassium 4.1 (3.4-5.1) mmol/L Chloride 105 (98-107) mmol/L Carbon Dioxide 26 (22-32) mmol/L BUN 13 (7-17) mg/dL Creatinine 0.70 (0.52-1.04) mg/dL Estimated GFR > 60.0 (>60) mL/min BUN/Creatinine Ratio 18.6 (6-22) Glucose 104 H (70-100) mg/dL Calcium 9.1 (8.4-10.2) mg/dL Total Bilirubin 0.4 (0.2-1.3) mg/dL AST 24 (14-36) IU/L ALT 23 (9-52) IU/L Alkaline Phosphatase 61 (38-126) U/L Total Protein 6.9 (6.3-8.2) g/dL Albumin 3.8 (3.5-5.0) g/dL Globulin 3.1 (1.7-4.1) g/dL Albumin/Globulin Ratio 1.2 (1.0-2.8) Lipase 49 (23-300) U/L Point of care testing: Point of Care Testing Test Results Negative Urine Dip Bedside Urine Glucose Negative Bedside Urine Bilirubin - Negative Bedside Urine Ketone - Negative Urine Specific [place] 1.030 Bedside Urine Occult Blood - Negative Bedside Urine pH 6.0 Bedside Urine Protein - Negative Bedside Urine Urobilinogen - Negative Bedside Urine Nitrite - Negative Bedside Urine Leukocytes - Negative Esterase Imaging Data US - abdomen: Radiologist's impression: [address] [address] Ultrasound Report Signed Patient: Lynn Hurtado MR#: [id number] : 1995 Acct:[id number] Age/Sex: 22 / F Date of Service: 02/21/18 Loc: ED Accession Number: [id number] Procedure: US abdomen complete Ordering Provider: Radha Romero P.A-C PROCEDURE: US ABDOMEN COMPLETE INDICATIONS: RIGHT UPPER QUADRANT PAIN TECHNIQUE: Real-time scanning was performed of the abdominal and retroperitoneal organs, with image documentation. COMPARISON: None. FINDINGS: Liver: Liver is normal in size and homogeneous in echotexture. Gallbladder: No gallstones. No gallbladder wall thickening, pericholecystic fluid or sonographic Edwards's sign. Biliary ducts: Intrahepatic bile ducts are non-dilated. Extrahepatic bile duct caliber measures 3.6 mm. Normal is 6-7 mm or less in diameter, or 10 mm or less post-cholecystectomy. Pancreas: Visualized portions of the pancreas are sonographically normal. Spleen: Spleen is normal in size and homogeneous in echotexture. Kidneys: Kidneys are normal in size and echotexture. Right kidney measures 9.9 cm long; left kidney measures 10.3 cm long. No hydronephrosis or nephrolithiasis. No solid masses. Aorta: Visualized aorta is normal in caliber at less than 3 cm. Iliacs: Proximal common iliac arteries are normal in caliber at less than 2.5 cm. IVC: Intrahepatic inferior vena cava is patent. Miscellaneous: No free abdominal fluid. IMPRESSION: Normal abdominal ultrasound exam. A cause for right upper quadrant pain is not identified. Dictated by: Sam Avina M.D. on 02/21/2018 at 14:29 Approved by: Sam Avina M.D. on 02/21/2018 at 14:31 pelvis: Radiologist's impression: Launch Image View Report History Print [address] [address] Ultrasound Report Signed Patient: Lynn Hurtado MR#: [id number] : 1995 Acct:[id number] Age/Sex: 22 / F Date of Service: 02/21/18 Loc: ED Accession Number: [id number] Procedure: US pelvic complete Ordering Provider: Radha Romero P.A-C PROCEDURE: US PELVIC COMPLETE INDICATIONS: PAIN TECHNIQUE: Real-time scanning was performed of the pelvic organs, with image documentation. Additional endovaginal scanning was necessary due to incomplete visualization of the adnexal and endometrial structures by transabdominal scanning. COMPARISON: [facility], MR, MR PELVIS WO/W CON, 01/21/2018, 8:09. FINDINGS: Transabdominal scanning: Limited scanning through the kidneys shows no hydronephrosis. Small amount of free pelvic fluid is within physiologic limits. Endovaginal scanning: Uterus: Uterus is normal in size at 6.1 x 3.3 x 4.4 cm. The endometrium measures 4.8 mm in combined thickness. Ovaries: Right ovary is not identified. Left ovary measures 5.7 x 2.7 x 4.4 cm. There is a complex, non-vascular hypoechoic mass in the left adnexa measuring 5.0 x 3.6 x 3.8 cm with internal echo but no vascularity, most likely a project cyst. IMPRESSION: 1. A 5.0 x 3.6 x 3.8 cm complex, non-vascular , hypoechoic mass in the left adnexa, probably a hemorrhagic cyst. Ovarian torsion, although not excluded, is felt less likely. 2. Nonvisualization of the right ovary. 3. Normal uterus. Dictated by: Sam Avina M.D. on 02/21/2018 at 14:31 Approved by: Sam Avina M.D. on 02/21/2018 at 14:39 <Ivy Rice DO - Last Filed: 02/22/18 08:07> Lab Data Lab Results 02/21/18 02/21/18 Range/Units 11:48 11:48 WBC 7.0 (4.5-11.0) X10^3/uL RBC 4.20 (4.0-5.2) X10^6/uL Hgb 12.4 (12.0-16.0) g/dL Hct 36.7 (36-46) % MCV 87.4 (80-100) fL MCH 29.4 (26-34) PG MCHC 33.7 (30-36) % RDW 12.2 (11.6-14.8) % Plt Count 319 (150-400) X10^3/uL Neut % (Auto) 60.0 (50-75) % Lymph % (Auto) 32.1 (25-40) % [place] % (Auto) 6.0 (3-14) % Eos % (Auto) 1.3 L (2-4) % Baso % (Auto) 0.6 (0-2) % Neut # (Auto) 4200 (1093-0117) /uL Sodium 141 (137-145) mmol/L Potassium 4.1 (3.4-5.1) mmol/L Chloride 105 (98-107) mmol/L Carbon Dioxide 26 (22-32) mmol/L BUN 13 (7-17) mg/dL Creatinine 0.70 (0.52-1.04) mg/dL Estimated GFR > 60.0 (>60) mL/min BUN/Creatinine Ratio 18.6 (6-22) Glucose 104 H (70-100) mg/dL Calcium 9.1 (8.4-10.2) mg/dL Total Bilirubin 0.4 (0.2-1.3) mg/dL AST 24 (14-36) IU/L ALT 23 (9-52) IU/L Alkaline Phosphatase 61 (38-126) U/L Total Protein 6.9 (6.3-8.2) g/dL Albumin 3.8 (3.5-5.0) g/dL Globulin 3.1 (1.7-4.1) g/dL Albumin/Globulin Ratio 1.2 (1.0-2.8) Lipase 49 (23-300) U/L Point of care testing: Point of Care Testing Test Results Negative Urine Dip Bedside Urine Glucose Negative Bedside Urine Bilirubin - Negative Bedside Urine Ketone - Negative Urine Specific [place] 1.030 Bedside Urine Occult Blood - Negative Bedside Urine pH 6.0 Bedside Urine Protein - Negative Bedside Urine Urobilinogen - Negative Bedside Urine Nitrite - Negative Bedside Urine Leukocytes - Negative Esterase Discharge Plan Departure Patient Disposition: Home Clinical Impression: Pelvic pain, Low back pain Discharge Date/Time: 02/21/18 14:15 Interventions: ED Discharge Assessment Last Done: 02/21/18 14:08 Instructions: DI for Low Back Pain, DI for Pelvic Pain Activity Restrictions/Additional Instructions: The gis technician saw a cyst on your left ovary today which may or may not be the same as the cyst that was seen on your MRI last month. It is not clear whether this is the source of your pelvic pain. Your gallbladder and other organs appeared normal. There are no acute problems found on your lab work. Your back pain could be related to this or may be due to muscle spasm. Please continue Celebrex once daily, and you can and the prescription hydrocodone/acetaminophen and muscle relaxant cyclobenzaprine to see if these are helpful. Remember those may make you sleepy and not to drive. I will phone you if the radiologist finds anything different on your ultrasound then we talked about. [place] or 2 to determine whether these medicines are helping you and whether any further testing is needed. You should return here if you have acutely worsening symptoms, or new symptoms with her pain such as fever or vomiting. Prescriptions: New cyclobenzaprine 10 mg tablet 10 mg PO Q8H Qty: 10 RF: 0 hydrocodone-acetaminophen [[place]] 5-325 mg tablet 1 tab PO Q6H PRN (Reason: back and pelvic pain acute) Qty: 7 RF: 0 No Action lidocaine HCl 2 % jelly 1 applictn TOP ONCE PRN (Reason: pain) Qty: 30 RF: 3 omeprazole 40 mg capsule,delayed release(DR/EC) 40 mg PO DAILY PRN (Reason: Heartburn) RF: 0 ibuprofen 200 mg Tablet 200 mg PO PRN PRN (Reason: pain) RF: 0 acetaminophen [Mapap (acetaminophen)] 325 mg tablet 1 dose PO PRN PRN (Reason: Fever Or Pain) RF: 0 celecoxib 100 mg capsule 100 mg PO QID PRN (Reason: pain) RF: 0 drospirenone-ethinyl estradiol [[place] (28)] 3-0.03 mg tablet 1 tab PO QPM RF: 0 multivitamin Tablet 1 tab PO DAILY RF: 0 Vitamin D3 1 cap PO DAILY RF: 0 Referrals: [facility] [Outside] Mary Ann Addsion MD [Physician] - Stand Alone Forms: Work Release Note <Ivy Rice DO - Last Filed: 02/22/18 08:07> Cosign ED Attending Cossiriature Attestation: I was immediately available in the department for consultation. Documentation has been reviewed. I agree with assessment and plan.
[2018-02-21 12:41] LABS: Add Manual Diff / Slide Review NO; Basophils Percent Auto 0.6 % (0-2); Eosinophils Percent Auto 1.3 % (2-4); Hematocrit 36.7 % (36-46); Hemoglobin 12.4 g/dL (12.0-16.0); Lymphocytes Percent Auto 32.1 % (25-40); Mean Corpuscular HGB Conc 33.7 % (30-36); Mean Corpuscular Hemoglobin 29.4 PG (26-34); Mean Corpuscular Volume 87.4 fL (80-100); Neutrophils Absolute Auto 4200 /uL (1500-7000); Platelet Count 319 X10^3/uL (150-400); Red Cell Distribution Width 12.2 % (11.6-14.8)
[2018-02-21 12:47] LABS: Alanine Aminotransferase 23 IU/L (9-52); Albumin 3.8 g/dL (3.5-5.0); Albumin Globulin Ratio 1.2 (1.0-2.8); Alkaline Phosphatase 61 U/L (38-126); Aspartate Aminotransferase 24 IU/L (14-36); BUN Creatinine Ratio 18.6 (6-22); Bilirubin Total 0.4 mg/dL (0.2-1.3); Blood Urea Nitrogen 13 mg/dL (7-17); Calcium 9.1 mg/dL (8.4-10.2); Carbon Dioxide 26 mmol/L (22-32); Chloride 105 mmol/L (98-107); Estimated Glomerular Filt Rate > 60.0 mL/min (>60); Globulin 3.1 g/dL (1.7-4.1); Glucose 104 mg/dL (70-100); HEMOLYSIS < 15 (0-50); Lipase 49 U/L (23-300); Potassium 4.1 mmol/L (3.4-5.1); Sodium 141 mmol/L (137-145); Total Protein 6.9 g/dL (6.3-8.2)
[2018-02-21] MEDS: KETOROLAC 60 MG/2 ML VIAL 30 MG IV (12:51)
[2018-02-21 13:43] VITALS: BP 110/74; PULSE 88; RESP 15; O2SAT 100
== END 2018-02-21 14:15 | disposition home or self-care (01) ==
PROVIDERS: Emergency Provider Internal Medicine
DX: R10.2 Pelvic and perineal pain (principal); M54.9 Dorsalgia, unspecified
CPT/HCPCS: 36591; 76700; 76830; 76856; 80053; 81003; 81025; 83690; 85025; 96374; 99282; 99284; J1885

== ENCOUNTER 2018-05-03 08:58 | Emergency (ER) | payer OTHER, SELFPAY ==
[2018-05-03] VITALS (7 sets, daily range): BP systolic 105–125; BP diastolic 62–83; PULSE 78–94; RESP 16–20; TEMP 37; O2SAT 98–100; BMI 33.3
--- NOTE | 2018-05-03 10:20 | ED_ITS ---
HPI - Abdominal Pain General Chief Complaint: Abdominal Pain Stated Complaint: abdominal pain Time Seen by Provider: 05/03/18 09:16 Source: patient Mode of arrival: ambulatory Limitations: no limitations History of Present Illness HPI narrative: 23-year-old female here for evaluation of bilateral lower abdominal pain/pelvic pain. She states that has been going on for the past 24-36 hr. She has had pelvic pain in the past. Has had a workup for endometriosis but she states that she has never been diagnosed with this. She is on control. She has chronic dysuria and she states there is no change in that. No bowel changes. Has been taking ibuprofen at home for symptoms without any improvement Related Data Home Medications Medication Instructions Recorded Confirmed omeprazole 40 mg capsule,delayed 40 mg PO DAILY PRN 09/09/17 05/03/18 release ibuprofen 200 mg PO PRN PRN 02/03/18 05/03/18 Vitamin D3 1 cap PO DAILY 02/21/18 05/03/18 acetaminophen [Mapap 1 dose PO PRN PRN 02/21/18 05/03/18 (acetaminophen)] celecoxib 1 dose PO DAILY PRN 02/21/18 05/03/18 drospirenone-ethinyl estradiol 1 tab PO QPM 02/21/18 05/03/18 [Germania (28)] loratadine 10 mg PO DAILY 05/03/18 05/03/18 [id number] carb-vit K 1 tab PO DAILY 05/03/18 05/03/18 [Women's Multivitamin] Previous Rx's Medication Instructions Recorded lidocaine 2 % mucosal jelly 1 applictn TOP ONCE PRN #30 ml 09/01/17 tramadol [Ultram] 50 mg PO Q6H PRN #10 tab 05/03/18 Allergies Allergy/AdvReac Type Severity Reaction Status Date / Time No Known Drug Allergies Allergy Verified 10/08/17 16:01 Review of Systems Constitutional Denies fever(s) and Denies headache(s) ENT Ears, Nose, Mouth, and Throat: Denies headache(s) Cardiovascular Denies chest pain and Denies dyspnea Respiratory Denies dyspnea Gastrointestinal Gastrointestinal: Reports abdominal pain, Denies change in stool character, Denies nausea and Denies vomiting Genitourinary Reports dysuria Musculoskeletal Denies back pain, Denies myalgias and Denies arthralgias Integumentary/Breasts Denies lesions and Denies rash Neurologic Denies headache(s) Hematologic/Lymphatic Denies easy bleeding and Denies easy bruising [facility] Social History Smoking Status: Current every day smoker Exam Initial Vital Signs Initial Vital Signs: Vital Signs Temperature 98.6 F 05/03/18 09:10 Pulse Rate 83 05/03/18 09:10 Respiratory Rate 20 05/03/18 09:10 Blood Pressure 116/83 05/03/18 09:10 Pulse Oximetry 99 05/03/18 09:10 Const General: cooperative, healthy appearing, comfortable, well developed, well groomed and No acute distress Orientation: alert, awake and oriented x3 HENMT Head: normal to inspection, normocephalic and atraumatic Resp Effort & Inspection: normal respiratory effort Auscultation: clear to auscultation bilaterally Cardio Rate: regular rate Rhythm: regular rhythm Pulses: radial pulses present GI Inspection: non-distended Palpation: soft, No firm, No guarding, No rigid and tender (Bilateral lower abdomen) Back/Spine/Pelvis Back: No CVA tenderness Skin Lesions: no lesions Rashes: no rashes Neuro General: alert, awake and oriented x3 Extrem General: normal to inspection and capillary refill normal Psych Appearance: grossly normal and well kempt Course Orders Ordered: ED Orders 05/03/18 10:34 CT abdomen pelvis w con Stat 05/03/18 10:55 Complete Blood Count AUTO DIFF Stat Comprehensive Metabolic Panel Stat Lipase Stat 05/03/18 12:19 US pelvic complete Stat Discontinued Medications Sodium Chloride (Normal Saline 0.9%) 1,000 mls @ 1,000 mls/hr IV BOLUS ONE Stop: 05/03/18 11:30 Last Infusion: 05/03/18 12:49 Dose: 0 mls/hr Admin: 05/03/18 11:02 Dose: 1,000 mls/hr Vital Signs - 8 hr 05/03/18 09:10 05/03/18 10:40 05/03/18 11:36 Temperature 98.6 F Pulse Rate 83 78 81 Respiratory Rate 20 16 18 Blood Pressure 116/83 Blood Pressure [Left Arm] 112/63 125/62 Pulse Oximetry 99 100 100 05/03/18 12:10 05/03/18 13:06 05/03/18 14:07 Temperature Pulse Rate 94 H 93 H 83 Respiratory Rate 18 16 Blood Pressure Blood Pressure [Left Arm] 124/63 105/64 112/69 Pulse Oximetry 100 100 98 MDM - Abdominal Pain Lab Data Attestation: I reviewed the patient's lab results. Result diagrams: 05/03/18 10:55 05/03/18 10:55 Lab Results 05/03/18 05/03/18 05/03/18 Range/Units 10:55 10:55 10:55 WBC 7.5 (4.5-11.0) X10^3/uL RBC 4.14 (4.0-5.2) X10^6/uL Hgb 12.4 (12.0-16.0) g/dL Hct 35.7 L (36-46) % MCV 86.1 (80-100) fL MCH 29.9 (26-34) PG MCHC 34.7 (30-36) % RDW 12.8 (11.6-14.8) % Plt Count 344 (150-400) X10^3/uL Neut % (Auto) 47.5 L (50-75) % Lymph % (Auto) 45.1 H (25-40) % Gray % (Auto) 4.8 (3-14) % Eos % (Auto) 1.1 L (2-4) % Baso % (Auto) 1.5 (0-2) % Neut # (Auto) 3600 (8028-2692) /uL Lymph # (Auto) 3400 (5797-2774) /uL Gray # (Auto) 400 (0-900) /uL Eos # (Auto) 100 (0-450) /uL Baso # (Auto) 100 (0-100) /uL Sodium 139 (137-145) mmol/L Potassium 3.9 (3.4-5.1) mmol/L Chloride 106 (98-107) mmol/L Carbon Dioxide 24 (22-32) mmol/L BUN 9 (7-17) mg/dL Creatinine 0.70 (0.52-1.04) mg/dL Estimated GFR > 60.0 (>60) mL/min BUN/Creatinine Ratio 12.9 (6-22) Glucose 93 (70-100) mg/dL Calcium 9.1 (8.4-10.2) mg/dL Total Bilirubin 0.4 (0.2-1.3) mg/dL AST 26 (14-36) IU/L ALT 31 (9-52) IU/L Alkaline Phosphatase 60 (38-126) U/L Total Protein 7.1 (6.3-8.2) g/dL Albumin 4.0 (3.5-5.0) g/dL Globulin 3.1 (1.7-4.1) g/dL Albumin/Globulin Ratio 1.3 (1.0-2.8) Lipase 47 (23-300) U/L Point of care testing: Point of Care Testing Test Results Negative Urine Dip Bedside Urine Glucose Negative Bedside Urine Bilirubin - Negative Bedside Urine Ketone - Negative Urine Specific [place] 1.015 Bedside Urine Occult Blood - Negative Bedside Urine pH 7.0 Bedside Urine Protein - Negative Bedside Urine Urobilinogen - Negative Bedside Urine Nitrite - Negative Bedside Urine Leukocytes - Negative Esterase Imaging Data CT scan - abdomen: Radiologist's impression: PROCEDURE: CT ABDOMEN PELVIS W CON INDICATIONS: bilateral lower abd pain TECHNIQUE: After the administration of intravenous contrast, 5 mm thick sections acquired from the diaphragm to the symphysis. 5 mm coronal and sagittal reformats were acquired. For radiation dose reduction, the following was used: automated exposure control, adjustment of mA and/or kV according to patient size. COMPARISON: [facility], US, US PELVIC COMPLETE, 02/21/2018, 12:45. [facility], MR, MR PELVIS WO/W CON, 01/21/2018, 8:09. FINDINGS: Image quality: Excellent. ABDOMEN: Lung bases: Lung bases are clear. Heart size is normal. Solid organs: Liver is normal in size and enhancement. Gallbladder is within normal limits. Biliary system is non dilated. Pancreas enhances normally. Spleen is normal in size and enhancement. No adrenal nodules. Kidneys demonstrate normal size and enhancement, without hydronephrosis. Peritoneum and bowel: Bowel loops demonstrate normal wall thickness and caliber. No free fluid or air. Normal appendix. Nodes and vessels: No retroperitoneal or mesenteric adenopathy by size criteria. Aorta and inferior vena cava are normal in size. Miscellaneous: No ventral hernias. PELVIS: Genitourinary: Bladder wall thickness is normal. There is a 70 mm diameter left ovarian cyst, which has increased in size compared to the prior MRI and ultrasound examinations. Miscellaneous: No inguinal hernias or adenopathy. Bones: No suspicious bony lesions. No vertebral body compression fractures. IMPRESSION: 1. No acute process. 2. Progressive increase in size of left ovarian cyst. Malignancy cannot be excluded. Gynecological consultation is recommended. 3. Normal appendix. Dictated by: Nancy Courtney M.D. on 05/03/2018 at 12:01 Approved by: Nancy Courtney M.D. on 05/03/2018 at 12:04 pelvis: Radiologist's impression: [place] [address] Ultrasound Report Signed Patient: Lynn Hrutado RMR#: [id number] : 1995Acct:[id number] Age/Sex: 23 / FDate of Service: 05/03/18 Loc: ED Accession Number: [id number] Procedure: US pelvic complete Ordering Provider: Bam Neves D.O. PROCEDURE: US PELVIC COMPLETE INDICATIONS: LEFT OVARIAN CYST TECHNIQUE: Real-time scanning was performed of the pelvic organs, with image documentation. Additional endovaginal scanning was necessary due to incomplete visualization of the adnexal and endometrial structures by transabdominal scanning. COMPARISON: [facility], CT, CT ABDOMEN PELVIS W CON, 05/03/2018, 11:14. [facility], US, US PELVIC COMPLETE, 02/21/2018, 12:45. FINDINGS: Transabdominal scanning: Limited scanning through the kidneys shows no hydronephrosis. No pathologic free abdominal or pelvic fluid. Endovaginal scanning: Uterus: Uterus is normal in size at 6.2 x 2.8 x 4.0 cm. The uterus is anteverted and anteflexed. The endometrium measures 4 mm in combined thickness. No focal myometrial lesions are evident. No significant fluid is seen within the endometrium. The cervix is within normal limits. Ovaries: The left ovary is enlarged and contains a 6.1 x 4.4 x 4.9 cm cyst. Punctate foci of increased echogenicity are evident within the left ovary without mayda calcifications noted on CT. No soft tissue components or thick septations are evident. Low level internal echoes are present within this hypoechoic cystic structure. There may be mild debris within the dependent aspect of this cyst. The right ovary is normal in size and measures 3.4 x 1.5 x 1.2 cm. IMPRESSION: 1. 6 cm left ovarian cyst and may represent a hemorrhagic cyst. A followup pelvic ultrasound in 2-3 months is recommended to document resolution. 2. Unremarkable uterus and right ovary. Dictated by: Don Samuels M.D. on 05/03/2018 at 13:06 Approved by: Don Samuels M.D. on 05/03/2018 at 13:11 [facility] Narrative Medical decision making narrative: Patient has a benign abdominal exam. CT scan shows left-sided ovarian cyst. Pelvic ultrasound confirms this. No signs of torsion. 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 Was sent home with pain medication. She is on control. I suspect this is the cause of her abdominal pain. She was given return precautions. She expressed understanding and agreement with plan. Discharge Plan Departure Patient Disposition: Home Clinical Impression: Ovarian cyst Qualifiers: Laterality: left Qualified Code(s): N83.202 - Unspecified ovarian cyst, left side Instructions: DI for Ovarian Cyst Activity Restrictions/Additional Instructions: You have a follow-up with Dr. Addison on Sunday May 06, 2018 at 0930 in the morning. If he cannot make this appointment please call their office at [phone] to reschedule. Take the medications as needed. Return to the emergency department for any new or worsening symptoms Prescriptions: New tramadol [Ultram] 50 mg tablet 50 mg PO Q6H PRN (Reason: pain) Qty: 10 RF: 0 No Action lidocaine HCl 2 % jelly 1 applictn TOP ONCE PRN (Reason: pain) Qty: 30 RF: 3 omeprazole 40 mg capsule,delayed release(DR/EC) 40 mg PO DAILY PRN (Reason: Heartburn) RF: 0 ibuprofen 200 mg Tablet 200 mg PO PRN PRN (Reason: pain) RF: 0 loratadine 10 mg tablet 10 mg PO DAILY RF: 0 Women's Multivitamin 18 mg iron-400 mcg-500 mg Tablet 1 tab PO DAILY RF: 0 acetaminophen [Mapap (acetaminophen)] 325 mg tablet 1 dose PO PRN PRN (Reason: Fever Or Pain) RF: 0 celecoxib 100 mg capsule 1 dose PO DAILY PRN (Reason: pain) RF: 0 drospirenone-ethinyl estradiol [Germania (28)] 3-0.03 mg tablet 1 tab PO QPM RF: 0 Vitamin D3 1 cap PO DAILY RF: 0 Stand Alone Forms: Work Release Note
--- NOTE | 2018-05-03 10:34 | DI.CT.S_ITS ---
PROCEDURE: CT ABDOMEN PELVIS W CON INDICATIONS: bilateral lower abd pain TECHNIQUE: After the administration of intravenous contrast, 5 mm thick sections acquired from the diaphragm to the symphysis. 5 mm coronal and sagittal reformats were acquired. For radiation dose reduction, the following was used: automated exposure control, adjustment of mA and/or kV according to patient size. COMPARISON: [facility], US, US PELVIC COMPLETE, 02/21/2018, 12:45. [facility], MR, MR PELVIS WO/W CON, 01/21/2018, 8:09. FINDINGS: Image quality: Excellent. ABDOMEN: Lung bases: Lung bases are clear. Heart size is normal. Solid organs: Liver is normal in size and enhancement. Gallbladder is within normal limits. Biliary system is non dilated. Pancreas enhances normally. Spleen is normal in size and enhancement. No adrenal nodules. Kidneys demonstrate normal size and enhancement, without hydronephrosis. Peritoneum and bowel: Bowel loops demonstrate normal wall thickness and caliber. No free fluid or air. Normal appendix. Nodes and vessels: No retroperitoneal or mesenteric adenopathy by size criteria. Aorta and inferior vena cava are normal in size. Miscellaneous: No ventral hernias. PELVIS: Genitourinary: Bladder wall thickness is normal. There is a 70 mm diameter left ovarian cyst, which has increased in size compared to the prior MRI and ultrasound examinations. Miscellaneous: No inguinal hernias or adenopathy. Bones: No suspicious bony lesions. No vertebral body compression fractures. IMPRESSION: 1. No acute process. 2. Progressive increase in size of left ovarian cyst. Malignancy cannot be excluded. Gynecological consultation is recommended. 3. Normal appendix. Dictated by: Nancy Courtney M.D. on 05/03/2018 at 12:01 Approved by: Nancy Courtney M.D. on 05/03/2018 at 12:04
[2018-05-03 11:01] LABS: Add Manual Diff / Slide Review NO; Basophils Absolute Auto 100 /uL (0-100); Basophils Percent Auto 1.5 % (0-2); Eosinophils Absolute Auto 100 /uL (0-450); Eosinophils Percent Auto 1.1 % (2-4); Hematocrit 35.7 % (36-46); Hemoglobin 12.4 g/dL (12.0-16.0); Lymphocytes Absolute Auto 3400 /uL (1100-4500); Lymphocytes Percent Auto 45.1 % (25-40); Mean Corpuscular HGB Conc 34.7 % (30-36); Mean Corpuscular Hemoglobin 29.9 PG (26-34); Mean Corpuscular Volume 86.1 fL (80-100); Monocytes Absolute Auto 400 /uL (0-900); Monocytes Percent Auto 4.8 % (3-14); Neutrophils Absolute Auto 3600 /uL (1500-7000); Neutrophils Percent Auto 47.5 % (50-75); Platelet Count 344 X10^3/uL (150-400); Red Blood Cell Count 4.14 X10^6/uL (4.0-5.2); Red Cell Distribution Width 12.8 % (11.6-14.8); White Blood Cell Count 7.5 X10^3/uL (4.5-11.0)
[2018-05-03] MEDS: SODIUM CHLORIDE 0.9% 1,000 ML 1000 ML IV (11:02)
[2018-05-03 11:10] LABS: Lipase 47 U/L (23-300)
[2018-05-03 11:11] LABS: Alanine Aminotransferase 31 IU/L (9-52); Albumin Globulin Ratio 1.3 (1.0-2.8); Alkaline Phosphatase 60 U/L (38-126); Aspartate Aminotransferase 26 IU/L (14-36); BUN Creatinine Ratio 12.9 (6-22); Bilirubin Total 0.4 mg/dL (0.2-1.3); Blood Urea Nitrogen 9 mg/dL (7-17); Calcium 9.1 mg/dL (8.4-10.2); Carbon Dioxide 24 mmol/L (22-32); Chloride 106 mmol/L (98-107); Estimated Glomerular Filt Rate > 60.0 mL/min (>60); Globulin 3.1 g/dL (1.7-4.1); Glucose 93 mg/dL (70-100); HEMOLYSIS < 15 (0-50); Potassium 3.9 mmol/L (3.4-5.1); Sodium 139 mmol/L (137-145); Total Protein 7.1 g/dL (6.3-8.2)
--- NOTE | 2018-05-03 12:19 | DI.US.S_ITS ---
PROCEDURE: US PELVIC COMPLETE INDICATIONS: LEFT OVARIAN CYST TECHNIQUE: Real-time scanning was performed of the pelvic organs, with image documentation. Additional endovaginal scanning was necessary due to incomplete visualization of the adnexal and endometrial structures by transabdominal scanning. COMPARISON: [facility], CT, CT ABDOMEN PELVIS W CON, 05/03/2018, 11:14. [facility], US, US PELVIC COMPLETE, 02/21/2018, 12:45. FINDINGS: Transabdominal scanning: Limited scanning through the kidneys shows no hydronephrosis. No pathologic free abdominal or pelvic fluid. Endovaginal scanning: Uterus: Uterus is normal in size at 6.2 x 2.8 x 4.0 cm. The uterus is anteverted and anteflexed. The endometrium measures 4 mm in combined thickness. No focal myometrial lesions are evident. No significant fluid is seen within the endometrium. The cervix is within normal limits. Ovaries: The left ovary is enlarged and contains a 6.1 x 4.4 x 4.9 cm cyst. Punctate foci of increased echogenicity are evident within the left ovary without mayda calcifications noted on CT. No soft tissue components or thick septations are evident. Low level internal echoes are present within this hypoechoic cystic structure. There may be mild debris within the dependent aspect of this cyst. The right ovary is normal in size and measures 3.4 x 1.5 x 1.2 cm. IMPRESSION: 1. 6 cm left ovarian cyst and may represent a hemorrhagic cyst. A followup pelvic ultrasound in 2-3 months is recommended to document resolution. 2. Unremarkable uterus and right ovary. Dictated by: Don Samuels M.D. on 05/03/2018 at 13:06 Approved by: Don Samuels M.D. on 05/03/2018 at 13:11
== END 2018-05-03 14:48 | disposition home or self-care (01) ==
PROVIDERS: Emergency Provider Emergency Medicine
DX: N83.202 Unspecified ovarian cyst, left side (principal)
CPT/HCPCS: 36591; 74177; 76830; 76856; 80053; 81003; 81025; 83690; 85025; 96360; 96361; 99283; 99285; Q9967

== ENCOUNTER 2018-05-13 09:31 | Emergency (ER) | payer OTHER, SELFPAY ==
[2018-05-13 09:39] VITALS: BP 132/64; PULSE 93; RESP 20; TEMP 36.4; O2SAT 100
--- NOTE | 2018-05-13 10:24 | DI.US.S_ITS ---
PROCEDURE: US ABDOMEN COMPLETE INDICATIONS: RUQ PAIN TECHNIQUE: Real-time scanning was performed of the abdominal and retroperitoneal organs, with image documentation. COMPARISON: [facility], , US ABDOMEN COMPLETE, 02/21/2018, 12:33. FINDINGS: Liver: Liver is normal in size and homogeneous in echotexture, mildly hyperechoic consistent with fatty infiltration . Gallbladder: The gallbladder appears normal. Biliary ducts: Intrahepatic bile ducts are non-dilated. Extrahepatic bile duct caliber measures 2.3 mm. Normal is 6-7 mm or less in diameter, or 10 mm or less post-cholecystectomy. Pancreas: Visualized portions of the pancreas are sonographically normal. Spleen: Spleen is normal in size and homogeneous in echotexture. Kidneys: Kidneys are normal in size and echotexture. Right kidney measures 10.8 cm long; left kidney measures 10.7 cm long. No hydronephrosis or nephrolithiasis. No solid masses. Aorta: Visualized aorta is normal in caliber at less than 3 cm. Iliacs: Proximal common iliac arteries are normal in caliber at less than 2.5 cm. IVC: Intrahepatic inferior vena cava is patent. Miscellaneous: No free abdominal fluid. IMPRESSION: Minimal fatty infiltration within the liver, a definite source of right upper quadrant pain is not identified otherwise. Dictated by: Dakota Cervantes M.D. on 05/13/2018 at 11:15 Approved by: Dakota Cervantes M.D. on 05/13/2018 at 11:16
[2018-05-13 10:25] LABS: Alanine Aminotransferase 22 IU/L (9-52); Albumin Globulin Ratio 1.3 (1.0-2.8); Alkaline Phosphatase 62 U/L (38-126); Aspartate Aminotransferase 18 IU/L (14-36); BUN Creatinine Ratio 18.6 (6-22); Bilirubin Total 0.5 mg/dL (0.2-1.3); Blood Urea Nitrogen 13 mg/dL (7-17); Calcium 8.9 mg/dL (8.4-10.2); Carbon Dioxide 24 mmol/L (22-32); Chloride 102 mmol/L (98-107); Estimated Glomerular Filt Rate > 60.0 mL/min (>60); Globulin 3.1 g/dL (1.7-4.1); Glucose 121 mg/dL (70-100); HEMOLYSIS < 15 (0-50); Lipase 44 U/L (23-300); Potassium 3.9 mmol/L (3.4-5.1); Sodium 137 mmol/L (137-145); Total Protein 7.1 g/dL (6.3-8.2)
--- NOTE | 2018-05-13 10:29 | ED_ITS ---
HPI - Abdominal Pain General Chief Complaint: Abdominal Pain Stated Complaint: Sharp shooting pain on side of stomach Time Seen by Provider: 05/13/18 10:11 Source: patient Mode of arrival: ambulatory Limitations: no limitations History of Present Illness HPI narrative: This is a 23-year-old female who comes to the emergency department with complaint of right upper quadrant pain. Patient states started last night. She states they were just sitting around she felt sort of a kick like feeling in her right upper abdomen. It sort of resolved and then returned. Patient states that it has continued to be constant. The patient states it does not radiate to her back. She does have chronic pelvic pain but states that there has been no change in this. She states that she has a history where they suspect she has interstitial cystitis. She has had hematuria chronically. Patient has not had any fevers. She has felt slightly nauseated but had no vomiting. No diarrhea or constipation, no black or bloody stools. She has not had any vaginal bleeding. Her last period was end of March. Patient states she has not had similar symptoms in the past. She does follow with an OBGYN. Related Data Home Medications Medication Instructions Recorded Confirmed omeprazole 40 mg capsule,delayed 40 mg PO DAILY PRN 09/09/17 05/13/18 release ibuprofen 200 mg PO PRN PRN 02/03/18 05/13/18 Vitamin D3 1 cap PO DAILY 02/21/18 05/13/18 acetaminophen [Mapap 1 dose PO PRN PRN 02/21/18 05/13/18 (acetaminophen)] celecoxib 1 dose PO DAILY PRN 02/21/18 05/13/18 drospirenone-ethinyl estradiol 1 tab PO QPM 02/21/18 05/13/18 [Germania (28)] loratadine 10 mg PO DAILY PRN 05/03/18 05/13/18 xp-hw-[id number]-FA-Ca carb-vit K 1 tab PO DAILY 05/03/18 05/13/18 [Women's Multivitamin] fluticasone 1 spray INTRANASAL DIRECTED 05/13/18 05/13/18 Previous Rx's Medication Instructions Recorded lidocaine 2 % mucosal jelly 1 applictn TOP ONCE PRN #30 ml 09/01/17 tramadol [Ultram] 50 mg PO Q6H PRN #10 tab 05/03/18 tramadol [Ultram] 50 mg PO Q6H PRN #5 tab 05/13/18 Allergies Allergy/AdvReac Type Severity Reaction Status Date / Time No Known Drug Allergies Allergy Verified 10/08/17 16:01 Review of Systems Review of Systems ROS Unobtainable: All systems reviewed & are unremarkable except as noted in HPI and below Constitutional Denies chills, Denies fever(s), Denies lethargy and Denies weakness Gastrointestinal Gastrointestinal: Reports abdominal pain ( Right upper quadrant), Denies melena, Denies hematochezia, Denies change in bowel habits, Denies diarrhea, Reports nausea and Denies vomiting Genitourinary Reports as per HPI, Denies abnormal menses, Denies abnormal vaginal bleeding, Reports hematuria ( chronic), Denies dysuria, Reports pelvic pain ( chronic, no new change), Denies flank pain, Denies urinary incontinence, Denies urinary hesitancy, Denies urinary urgency and Denies vaginal discharge Musculoskeletal Reports back pain ( chronic back pain) Neurologic Denies weakness [facility] Medical History Chronic cystitis with hematuria (Chronic) Depression (Chronic) Dysuria (Chronic) GERD (gastroesophageal reflux disease) (Chronic) History of pyelonephritis (Chronic) Migraines (Chronic) Recurrent UTI (Chronic) Surgical History History of cystoscopy (Resolved) History of tonsillectomy (Resolved) Social History Smoking Status: Current every day smoker Social History Smoking Status: Current every day smoker Exam Narrative Exam Narrative: GENERAL: Alert and oriented x three, obese, well-appearing female in mild discomfort. HEENT: Head normocephalic, atraumatic, EOMI, pupils reactive, face symmetric, moist mucous membranes NECK: Supple, full range of motion CARDIOVASCULAR: Regular rate and rhythm without murmurs, rubs or gallops. RESPIRATORY: Breath sounds equal bilaterally, no wheezes rales or rhonchi. ABDOMEN: Soft, Positive for right upper quadrant tenderness. Normoactive bowel sounds all 4 quadrants. No guarding or rebound, rigidity, no mass : No CVA tenderness EXTREMITIES: Normal range of motion, no clubbing or edema. Neurovascularly intact NEUROLOGICAL: Cranial nerves II through XII grossly intact. Moving all extremities SKIN: Warm, dry, no petechiae, no rashes or lesions. Initial Vital Signs Initial Vital Signs: Vital Signs Temperature 97.6 F 05/13/18 09:39 Pulse Rate 93 H 05/13/18 09:39 Respiratory Rate 20 05/13/18 09:39 Blood Pressure 132/64 05/13/18 09:39 Pulse Oximetry 100 05/13/18 09:39 Course Orders Ordered: ED Orders 05/13/18 13:10 Urine Culture Stat Urine Microscopic Stat Discontinued Medications Sodium Chloride (Normal Saline 0.9%) 1,000 mls @ 1,000 mls/hr IV BOLUS ONE Stop: 05/13/18 11:23 Last Infusion: 05/13/18 12:01 Dose: 0 mls/hr Admin: 05/13/18 10:41 Dose: 1,000 mls/hr Ketorolac Tromethamine (Toradol) 30 mg IV NOW ONE Stop: 05/13/18 10:25 Last Admin: 05/13/18 10:41 Dose: 30 mg Ondansetron HCl (Zofran) 4 mg IV NOW ONE Stop: 05/13/18 10:25 Last Admin: 05/13/18 10:41 Dose: 4 mg Vital Signs - 8 hr 05/13/18 12:49 Pulse Rate 78 Respiratory Rate 15 Blood Pressure [Left Arm] 106/50 L Pulse Oximetry 98 MDM - Abdominal Pain Lab Data Attestation: I reviewed the patient's lab results. Result diagrams: 05/13/18 09:55 05/13/18 09:55 Lab Results 05/13/18 05/13/18 05/13/18 Range/Units 09:55 09:55 13:10 WBC 7.7 (4.5-11.0) X10^3/uL RBC 4.37 (4.0-5.2) X10^6/uL Hgb 12.9 (12.0-16.0) g/dL Hct 37.9 (36-46) % MCV 86.8 (80-100) fL MCH 29.5 (26-34) PG MCHC 34.0 (30-36) % RDW 12.8 (11.6-14.8) % Plt Count 347 (150-400) X10^3/uL Neut % (Auto) 60.5 (50-75) % Lymph % (Auto) 33.3 (25-40) % [place] % (Auto) 4.3 (3-14) % Eos % (Auto) 1.2 L (2-4) % Baso % (Auto) 0.7 (0-2) % Neut # (Auto) 4700 (2630-6365) /uL Lymph # (Auto) 2600 (4008-4706) /uL [place] # (Auto) 300 (0-900) /uL Eos # (Auto) 100 (0-450) /uL Baso # (Auto) 100 (0-100) /uL Sodium 137 (137-145) mmol/L Potassium 3.9 (3.4-5.1) mmol/L Chloride 102 (98-107) mmol/L Carbon Dioxide 24 (22-32) mmol/L BUN 13 (7-17) mg/dL Creatinine 0.70 (0.52-1.04) mg/dL Estimated GFR > 60.0 (>60) mL/min BUN/Creatinine Ratio 18.6 (6-22) Glucose 121 H (70-100) mg/dL Calcium 8.9 (8.4-10.2) mg/dL Total Bilirubin 0.5 (0.2-1.3) mg/dL AST 18 (14-36) IU/L ALT 22 (9-52) IU/L Alkaline Phosphatase 62 (38-126) U/L Total Protein 7.1 (6.3-8.2) g/dL Albumin 4.0 (3.5-5.0) g/dL Globulin 3.1 (1.7-4.1) g/dL Albumin/Globulin Ratio 1.3 (1.0-2.8) Lipase 44 (23-300) U/L Urine RBC None seen (0-5/HPF) Urine WBC 5-10/hpf H (0-5/HPF) Ur Squamous Epith Cells 1-5 /hpf Urine Bacteria Few (2-10) H (None) Ur Culture Indicated? Specimen cultured Point of care testing: Point of Care Testing Test Results Negative Urine Dip Bedside Urine Glucose Negative Bedside Urine Bilirubin - Negative Bedside Urine Ketone - Negative Urine Specific [place] 1.015 Bedside Urine Occult Blood - Negative Bedside Urine pH 7.5 Bedside Urine Protein - Negative Bedside Urine Urobilinogen - Negative Bedside Urine Nitrite - Negative Imaging Data US - abdomen: Radiologist's impression: [address] [address] Ultrasound Report Signed Patient: Lynn Hurtado RMR#: [id number] : 1995Acct:[id number] Age/Sex: 23 / FDate of Service: 05/13/18 Loc: ED Accession Number: [id number] Procedure: US abdomen complete Ordering Provider: Siria Alfonso D.O. PROCEDURE: US ABDOMEN COMPLETE INDICATIONS: RUQ PAIN TECHNIQUE: Real-time scanning was performed of the abdominal and retroperitoneal organs, with image documentation. COMPARISON: [facility], US, US ABDOMEN COMPLETE, 02/21/2018, 12:33. FINDINGS: Liver: Liver is normal in size and homogeneous in echotexture, mildly hyperechoic consistent with fatty infiltration . Gallbladder: The gallbladder appears normal. Biliary ducts: Intrahepatic bile ducts are non-dilated. Extrahepatic bile duct caliber measures 2.3 mm. Normal is 6-7 mm or less in diameter, or 10 mm or less post-cholecystectomy. Pancreas: Visualized portions of the pancreas are sonographically normal. Spleen: Spleen is normal in size and homogeneous in echotexture. Kidneys: Kidneys are normal in size and echotexture. Right kidney measures 10.8 cm long; left kidney measures 10.7 cm long. No hydronephrosis or nephrolithiasis. No solid masses. Aorta: Visualized aorta is normal in caliber at less than 3 cm. Iliacs: Proximal common iliac arteries are normal in caliber at less than 2.5 cm. IVC: Intrahepatic inferior vena cava is patent. Miscellaneous: No free abdominal fluid. IMPRESSION: Minimal fatty infiltration within the liver, a definite source of right upper quadrant pain is not identified otherwise. Dictated by: Dakota Cervantes M.D. on 05/13/2018 at 11:15 Approved by: Dakota Cervantes M.D. on 05/13/2018 at 11:16 MDM Narrative Medical decision making narrative: The patient's pain improved with Toradol. Her urine shows some leukocyte esterase but no clear urinary tract signs and that would be an unlikely cause of right upper quadrant pain. Discussed with patient plan for culture to return. Ultrasound did not show any acute changes other than some fatty liver changes which we discussed do need follow-up but are also unlikely to be the exact source of her discomfort. Patient's lab work otherwise did not show major abnormalities. Give her a short transcribed for tramadol for breakthrough pain she normally takes Celebrex daily. And for patient to follow up. Potentially patient could have ulcer or different causes such as colitis, but patient's description of symptoms makes this less likely. Discharge Plan Departure Patient Disposition: Home Clinical Impression: Abdominal pain Discharge Date/Time: 05/13/18 13:09 Interventions: ED Discharge Assessment Last Done: 05/13/18 13:09 Instructions: DI for Abdominal Pain-Adult Activity Restrictions/Additional Instructions: Follow-up with primary care in the next 3-5 days for recheck. Continue home medications as prescribed. Take pain medication as prescribed, you may take 1-2 tablets every 6 hr as needed for pain. You may take this with your regular Celebrex. Return to the emergency department for fevers greater than 100 point, worsening or increasing abdominal pain particularly on the right side, persistent vomiting, black or bloody stools, passing out or other new or concerning symptoms. Prescriptions: New tramadol [Ultram] 50 mg tablet 50 mg PO Q6H PRN (Reason: pain) Qty: 5 RF: 0 No Action lidocaine HCl 2 % jelly 1 applictn TOP ONCE PRN (Reason: pain) Qty: 30 RF: 3 omeprazole 40 mg capsule,delayed release(DR/EC) 40 mg PO DAILY PRN (Reason: Heartburn) RF: 0 ibuprofen 200 mg Tablet 200 mg PO PRN PRN (Reason: pain) RF: 0 loratadine 10 mg tablet 10 mg PO DAILY PRN (Reason: Allergy Symptoms) RF: 0 Women's Multivitamin 18 mg iron-400 mcg-500 mg Tablet 1 tab PO DAILY RF: 0 tramadol [Ultram] 50 mg tablet 50 mg PO Q6H PRN (Reason: pain) Qty: 10 RF: 0 acetaminophen [Mapap (acetaminophen)] 325 mg tablet 1 dose PO PRN PRN (Reason: Fever Or Pain) RF: 0 celecoxib 100 mg capsule 1 dose PO DAILY PRN (Reason: pain) RF: 0 drospirenone-ethinyl estradiol [Germania (28)] 3-0.03 mg tablet 1 tab PO QPM RF: 0 Vitamin D3 1 cap PO DAILY RF: 0 fluticasone 50 mcg/actuation spray,suspension 1 spray Intranasal DIRECTED RF: 0
[2018-05-13] MEDS: ONDANSETRON 4 MG/2 ML INJ IV (10:41)
[2018-05-13] MEDS: KETOROLAC 60 MG/2 ML VIAL 30 MG IV (10:41)
[2018-05-13] MEDS: SODIUM CHLORIDE 0.9% 1,000 ML 1000 ML IV (10:41)
[2018-05-13 11:15] LABS: Add Manual Diff / Slide Review NO; Basophils Absolute Auto 100 /uL (0-100); Basophils Percent Auto 0.7 % (0-2); Eosinophils Absolute Auto 100 /uL (0-450); Eosinophils Percent Auto 1.2 % (2-4); Hematocrit 37.9 % (36-46); Hemoglobin 12.9 g/dL (12.0-16.0); Lymphocytes Absolute Auto 2600 /uL (1100-4500); Lymphocytes Percent Auto 33.3 % (25-40); Mean Corpuscular Hemoglobin 29.5 PG (26-34); Mean Corpuscular Volume 86.8 fL (80-100); Monocytes Absolute Auto 300 /uL (0-900); Monocytes Percent Auto 4.3 % (3-14); Neutrophils Absolute Auto 4700 /uL (1500-7000); Neutrophils Percent Auto 60.5 % (50-75); Platelet Count 347 X10^3/uL (150-400); Red Blood Cell Count 4.37 X10^6/uL (4.0-5.2); Red Cell Distribution Width 12.8 % (11.6-14.8); White Blood Cell Count 7.7 X10^3/uL (4.5-11.0)
[2018-05-13 12:49] VITALS: BP 106/50; PULSE 78; RESP 15; O2SAT 98
[2018-05-13 13:12] LABS: RBC Urine None Seen (0-5/HPF)
[2018-05-13 13:20] LABS: Bacteria Urine Few (2-10); Culture Indicated Urine Specimen Cultured; Squamous Epithelial Cell Urine 1-5 /HPF; WBC Urine 5-10/HPF (0-5/HPF)
== END 2018-05-13 13:09 | disposition home or self-care (01) ==
PROVIDERS: Emergency Provider Emergency Medicine
DX: R10.9 Unspecified abdominal pain (principal)
CPT/HCPCS: 36591; 76700; 80053; 81003; 81015; 81025; 83690; 85025; 87077; 87086; 87186; 96361; 96374; 96375; 99283; 99284; J1885; J2405

== ENCOUNTER 2018-05-23 11:12 | Emergency (ER) | payer OTHER, SELFPAY ==
[2018-05-23 11:30] VITALS: BP 110/60; PULSE 80; RESP 18; TEMP 36.4; O2SAT 100; BMI 33.3
--- NOTE | 2018-05-23 11:37 | ED.NAVMDI ---
HPI - Nausea/Vomiting/Diarrhea General Chief complaint: Nausea/Vomiting/Diarrhea Stated complaint: VOMITING, DIAHREA Time Seen by Provider: 05/23/18 11:15 Source: patient and family Mode of arrival: ambulatory Limitations: no limitations History of Present Illness HPI Narrative: 23-year-old female nonsmoker presents with her significant other in the chief complaint of periumbilical discomfort as well as nausea, vomiting and diarrhea since yesterday. She was recently seen and evaluated at an outside facility and diagnosed with a urinary tract infection which is not uncommon for her. She has existing diagnoses of chronic suprapubic and pelvic discomfort as well as ulcerative colitis. Patient denies any fever or shaking chills. She denies any blood in her vomit or stools. She denies recent travel. She has been recently on antibiotics for the treatment of the above-noted UTI. She states that her pain comes in waves and is currently rather mild. When significant the pain will radiate to her back. MD complaint: nausea, vomiting, diarrhea and abdominal pain Onset (ago): day(s) Description of Vomiting: food contents Description of Diarrhea: watery Associated Abdominal Pain: Yes Location of pain: periumbilical Radiation: other Severity: moderate Quality: cramping Pain Consistency: intermittent Relieving factors: none Exacerbating factors: none Related Data Home Medications Medication Instructions Recorded Confirmed omeprazole 40 mg capsule,delayed 40 mg PO DAILY PRN 09/09/17 05/13/18 release ibuprofen 200 mg PO PRN PRN 02/03/18 05/13/18 Vitamin D3 1 cap PO DAILY 02/21/18 05/13/18 acetaminophen [Mapap 1 dose PO PRN PRN 02/21/18 05/13/18 (acetaminophen)] celecoxib 1 dose PO DAILY PRN 02/21/18 05/13/18 drospirenone-ethinyl estradiol 1 tab PO QPM 02/21/18 05/13/18 [Germania (28)] loratadine 10 mg PO DAILY PRN 05/03/18 05/23/18 wt-nv-rytl-FA-Ca carb-vit K 1 tab PO DAILY 05/03/18 05/13/18 [Women's Multivitamin] fluticasone propionate 1 spray INTRANASAL DIRECTED 05/13/18 05/13/18 cephalexin 500 mg PO QID 05/23/18 05/23/18 hydrocodone-acetaminophen 1 tab PO Q4-6H PRN 05/23/18 05/23/18 oxymetazoline [Nasal Decongestant 1 spray INTRANASAL PRN PRN 05/23/18 05/23/18 (oxymetazl)] Previous Rx's Medication Instructions Recorded lidocaine 2 % mucosal jelly 1 applictn TOP ONCE PRN #30 ml 09/01/17 tramadol [Ultram] 50 mg PO Q6H PRN #5 tab 05/13/18 promethazine 12.5 mg AK Q4-6H PRN #12 each 05/23/18 Allergies Allergy/AdvReac Type Severity Reaction Status Date / Time No Known Drug Allergies Allergy Verified 05/23/18 11:30 Review of Systems Constitutional Denies chills, Denies fever(s), Denies lethargy and Denies weakness Eyes Denies change in vision, Denies eye discharge, Denies irritation and Denies loss of vision ENT Ears, Nose, Mouth, and Throat: Denies change in voice, Denies neck pain and Denies sore throat Cardiovascular Denies chest pain, Denies irregular heart rhythm, Denies lightheadedness, Denies palpitations, Denies dyspnea, Denies dyspnea on exertion and Denies orthopnea Respiratory Denies cough, Denies dyspnea, Denies dyspnea on exertion and Denies wheezing Gastrointestinal Gastrointestinal: Reports abdominal pain, Denies change in bowel habits, Reports diarrhea, Reports nausea and Reports vomiting Genitourinary Denies hematuria, Denies flank pain, Denies urinary incontinence and Denies urinary urgency Musculoskeletal Denies neck pain Integumentary/Breasts Denies pruritus, Denies erythema, Denies rash and Denies wounds Neurologic Denies confusion, Denies loss of vision and Denies weakness Psychiatric Denies anxiety, Denies confusion, Denies depression, Denies homicidal ideation and Denies suicidal ideation Endocrine Denies palpitations Hematologic/Lymphatic Denies easy bruising Allergic/Immunologic Denies wheezing PFSH Medical History Chronic cystitis with hematuria (Chronic) Depression (Chronic) Dysuria (Chronic) GERD (gastroesophageal reflux disease) (Chronic) History of pyelonephritis (Chronic) Migraines (Chronic) Recurrent UTI (Chronic) Surgical History History of cystoscopy (Resolved) History of tonsillectomy (Resolved) Social History Smoking Status: Current every day smoker Social History Smoking Status: Current every day smoker Exam Narrative Exam Narrative: GENERAL: This is a well-nourished, well-developed patient, in mild distress. HEAD: Atraumatic. Normocephalic. No temporal or scalp tenderness. EYES: Pupils equal round and reactive. Extraocular motions intact. No scleral icterus. No injection or drainage. ENT: Nose without bleeding, purulent drainage or septal hematoma. Throat without erythema, tonsillar hypertrophy or exudate. Uvula midline. Airway patent. NECK: Trachea midline. No JVD or lymphadenopathy. Supple, nontender, no meningeal signs. CARDIOVASCULAR: Regular rate and rhythm without murmurs, gallops, or rubs. RESPIRATORY: Clear to auscultation. Breath sounds equal bilaterally. No wheezes, rales, or rhonchi. GASTROINTESTINAL: Abdomen soft, mild periumbilical tenderness, nondistended. Increased bowel sounds in all 4 quadrants. No hepato-splenomegaly, or palpable masses. No guarding. EXTREMITIES: No clubbing, cyanosis, or edema. No joint tenderness, effusion, or edema noted. BACK: Nontender without deformity or crepitance. No flank tenderness. NEURO: AOx3. SKIN: No rash or erythema. Initial Vital Signs Initial Vital Signs: Vital Signs Temperature 97.6 F 05/23/18 11:30 Pulse Rate 80 05/23/18 11:30 Respiratory Rate 18 05/23/18 11:30 Blood Pressure 110/60 05/23/18 11:30 Pulse Oximetry 100 05/23/18 11:30 Course Orders Ordered: ED Orders 05/23/18 12:40 Complete Blood Count AUTO DIFF Stat Comprehensive Metabolic Panel Stat Lipase Stat 05/23/18 14:17 Urine Microscopic Stat Sodium Chloride (Normal Saline 0.9%) 1,000 mls @ 150 mls/hr IV CONT GRICELDA Last Infusion: 05/23/18 14:20 Dose: 0 mls/hr Admin: 05/23/18 12:55 Dose: 150 mls/hr Discontinued Medications Pantoprazole Sodium (Protonix) 40 mg IV NOW ONE Stop: 05/23/18 11:56 Last Admin: 05/23/18 12:55 Dose: 40 mg Vital Signs - 8 hr 05/23/18 11:30 05/23/18 12:10 05/23/18 13:05 Temperature 97.6 F Pulse Rate 80 72 77 Respiratory Rate 18 15 16 Blood Pressure 110/60 Blood Pressure [Left Arm] 112/57 L Blood Pressure [Right Arm] 103/62 Pulse Oximetry 100 99 100 05/23/18 14:19 Temperature Pulse Rate 81 Respiratory Rate 18 Blood Pressure 120/59 L Blood Pressure [Left Arm] Blood Pressure [Right Arm] Pulse Oximetry 100 MDM - Nausea/Vomiting/Diarrhea Differential Diagnosis Likely traveler's diarrhea, food poisoning, gastroenteritis, drug-induced nausea and vomiting and dehydration Medical Records Attestation: I reviewed the patient's medical records. Lab Data Attestation: I reviewed the patient's lab results. Result diagrams: 05/23/18 12:40 05/23/18 12:40 Lab Results 05/23/18 05/23/18 Range/Units 12:40 12:40 WBC 8.0 (4.5-11.0) X10^3/uL RBC 4.31 (4.0-5.2) X10^6/uL Hgb 12.4 (12.0-16.0) g/dL Hct 36.8 (36-46) % MCV 85.5 (80-100) fL MCH 28.9 (26-34) PG MCHC 33.8 (30-36) % RDW 12.9 (11.6-14.8) % Plt Count 339 (150-400) X10^3/uL Neut % (Auto) 53.4 (50-75) % Lymph % (Auto) 37.8 (25-40) % [place] % (Auto) 6.4 (3-14) % Eos % (Auto) 1.3 L (2-4) % Baso % (Auto) 1.1 (0-2) % Neut # (Auto) 4300 (7368-7165) /uL Lymph # (Auto) 3000 (1240-0398) /uL [place] # (Auto) 500 (0-900) /uL Eos # (Auto) 100 (0-450) /uL Baso # (Auto) 100 (0-100) /uL Sodium 137 (137-145) mmol/L Potassium 4.0 (3.4-5.1) mmol/L Chloride 103 (98-107) mmol/L Carbon Dioxide 26 (22-32) mmol/L BUN 12 (7-17) mg/dL Creatinine 0.80 (0.52-1.04) mg/dL Estimated GFR > 60.0 (>60) mL/min BUN/Creatinine Ratio 15.0 (6-22) Glucose 93 (70-100) mg/dL Calcium 9.0 (8.4-10.2) mg/dL Total Bilirubin 0.6 (0.2-1.3) mg/dL AST 18 (14-36) IU/L ALT 24 (9-52) IU/L Alkaline Phosphatase 59 (38-126) U/L Total Protein 7.4 (6.3-8.2) g/dL Albumin 4.0 (3.5-5.0) g/dL Globulin 3.4 (1.7-4.1) g/dL Albumin/Globulin Ratio 1.2 (1.0-2.8) Lipase 43 (23-300) U/L Urine Dip Bedside Urine Glucose Negative Bedside Urine Bilirubin - Negative Bedside Urine Ketone - Negative Urine Specific [place] 1.015 Bedside Urine Occult Blood + Bedside Urine pH 6.5 Bedside Urine Protein - Negative Bedside Urine Urobilinogen - Negative Bedside Urine Nitrite - Negative Bedside Urine Leukocytes - Negative Esterase MDM Narrative Medical decision making narrative: 23-year-old female with chronic abdominal diagnoses presents with nausea, vomiting and diarrhea for 1 day. She has no fever, normal labs and a very benign exam. There is extensive discussion at the bedside regarding how to proceed and we sure the opinion that advanced imaging at this point time, in the lack of fever, convincing exam, or abnormal labs is likely not going to help much. She has been given extensive return precautions and has verbalized understanding these precautions. She feels better after the above-stated therapies and is ready for discharge. She has had her questions answered to her apparent satisfaction Discharge Plan Departure Patient Disposition: Home Clinical Impression: History of UTI, Dehydration Abdominal pain Qualifiers: Abdominal location: periumbilical Qualified Code(s): R10.33 - Periumbilical pain Interventions: ED Discharge Assessment Last Done: 05/23/18 14:19 Instructions: DI for Dehydration -- Adult, DI for Nausea -- Adult, DI for Vomiting -- Adult Activity Restrictions/Additional Instructions: 1. Drink plenty of fluids with frequent small sips. 2. For the next 24 hours a clear liquid diet is advised. After that please employ a brat diet which would include bananas, rice, apples, toast. 3. Please take medications as directed. 4. Please follow-up with your doctor in the next 1-2 days. Call the office for an appointment. 5. Please return to the emergency Department for any worsening or persistent symptoms, such as increasing pain or fever. Prescriptions: New promethazine 12.5 mg suppository 12.5 mg [place] Q4-6H PRN (Reason: nausea and vomiting) Qty: 12 RF: 0 No Action lidocaine HCl 2 % jelly 1 applictn TOP ONCE PRN (Reason: pain) Qty: 30 RF: 3 omeprazole 40 mg capsule,delayed release(DR/EC) 40 mg PO DAILY PRN (Reason: Heartburn) RF: 0 ibuprofen 200 mg Tablet 200 mg PO PRN PRN (Reason: pain) RF: 0 loratadine 10 mg tablet 10 mg PO DAILY PRN (Reason: Allergy Symptoms) RF: 0 Women's Multivitamin 18 mg iron-400 mcg-500 mg Tablet 1 tab PO DAILY RF: 0 acetaminophen [Mapap (acetaminophen)] 325 mg tablet 1 dose PO PRN PRN (Reason: Fever Or Pain) RF: 0 celecoxib 100 mg capsule 1 dose PO DAILY PRN (Reason: pain) RF: 0 drospirenone-ethinyl estradiol [[place] (28)] 3-0.03 mg tablet 1 tab PO QPM RF: 0 Vitamin D3 1 cap PO DAILY RF: 0 fluticasone propionate 50 mcg/actuation spray,suspension 1 spray Intranasal DIRECTED RF: 0 tramadol [Ultram] 50 mg tablet 50 mg PO Q6H PRN (Reason: pain) Qty: 5 RF: 0 hydrocodone-acetaminophen 5-325 mg tablet 1 tab PO Q4-6H PRN (Reason: pain) RF: 0 cephalexin 500 mg capsule 500 mg PO QID RF: 0 oxymetazoline [Nasal Decongestant (oxymetazl)] 0.05 % spray,non-aerosol 1 spray Intranasal PRN PRN (Reason: Congestion) RF: 0
[2018-05-23 12:10] VITALS: BP 103/62; PULSE 72; RESP 15; O2SAT 99
[2018-05-23 12:55] LABS: Add Manual Diff / Slide Review NO; Basophils Absolute Auto 100 /uL (0-100); Basophils Percent Auto 1.1 % (0-2); Eosinophils Absolute Auto 100 /uL (0-450); Eosinophils Percent Auto 1.3 % (2-4); Hematocrit 36.8 % (36-46); Hemoglobin 12.4 g/dL (12.0-16.0); Lymphocytes Absolute Auto 3000 /uL (1100-4500); Lymphocytes Percent Auto 37.8 % (25-40); Mean Corpuscular HGB Conc 33.8 % (30-36); Mean Corpuscular Hemoglobin 28.9 PG (26-34); Mean Corpuscular Volume 85.5 fL (80-100); Monocytes Absolute Auto 500 /uL (0-900); Monocytes Percent Auto 6.4 % (3-14); Neutrophils Absolute Auto 4300 /uL (1500-7000); Neutrophils Percent Auto 53.4 % (50-75); Platelet Count 339 X10^3/uL (150-400); Red Blood Cell Count 4.31 X10^6/uL (4.0-5.2); Red Cell Distribution Width 12.9 % (11.6-14.8)
[2018-05-23] MEDS: PANTOPRAZOLE 40 MG VIAL IV (12:55)
[2018-05-23] MEDS: SODIUM CHLORIDE 0.9% 1,000 ML 150 ML IV (12:55)
[2018-05-23 13:05] VITALS: BP 112/57; PULSE 77; RESP 16; O2SAT 100
[2018-05-23 13:21] LABS: Alanine Aminotransferase 24 IU/L (9-52); Albumin Globulin Ratio 1.2 (1.0-2.8); Alkaline Phosphatase 59 U/L (38-126); Aspartate Aminotransferase 18 IU/L (14-36); Bilirubin Total 0.6 mg/dL (0.2-1.3); Blood Urea Nitrogen 12 mg/dL (7-17); Carbon Dioxide 26 mmol/L (22-32); Chloride 103 mmol/L (98-107); Estimated Glomerular Filt Rate > 60.0 mL/min (>60); Globulin 3.4 g/dL (1.7-4.1); Glucose 93 mg/dL (70-100); HEMOLYSIS < 15 (0-50); Lipase 43 U/L (23-300); Sodium 137 mmol/L (137-145); Total Protein 7.4 g/dL (6.3-8.2)
[2018-05-23 14:19] VITALS: BP 120/59; PULSE 81; RESP 18; O2SAT 100
== END 2018-05-23 14:34 | disposition home or self-care (01) ==
PROVIDERS: Emergency Provider Emergency Medicine
DX: R10.33 Periumbilical pain (principal); Z87.440 Personal history of urinary (tract) infections; E86.0 Dehydration
CPT/HCPCS: 36591; 80053; 81003; 83690; 85025; 96361; 96374; 99283; 99284; C9113

== ENCOUNTER 2018-06-06 14:30 | Outpatient (RCR) | payer OTHER, SELFPAY ==
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
== END 2018-06-22 10:56 | disposition home or self-care (01) ==
LOC: PHYS 14:30
PROVIDERS: Visit Provider Urology
DX: R10.2 Pelvic and perineal pain (principal)
CPT/HCPCS: 97110; 97140; 97162; 97535

== ENCOUNTER 2018-06-07 10:03 | Emergency (ER) | payer OTHER, SELFPAY ==
[2018-06-07 10:16] VITALS: BP 108/80; PULSE 82; RESP 16; TEMP 36.3; O2SAT 99; BMI 33.3
--- NOTE | 2018-06-07 10:39 | ED.ABDPAIN ---
HPI - Abdominal Pain General Chief Complaint: Abdominal Pain Stated Complaint: abdominal/back sharp pains Time Seen by Provider: 06/07/18 10:30 Source: patient Mode of arrival: ambulatory Limitations: no limitations History of Present Illness HPI narrative: This is a 23-year-old female comes in complaint abdominal pain patient is requesting a work note. She states she has had chronic abdominal pain she has had extensive workups including laparoscopic surgery, she goes to pelvic floor PT she is being evaluated for interstitial cystitis as well as been referred for urodynamic testing. Patient has had multiple sets of imaging, lab work. Patient has not had any new changes to her abdominal pain. She tried to call the [facility] to be seen today for a work note to be home but she was referred to the ER. They were unable to see her. Patient does not wish to do any imaging or workup at this time. She states is her typical pain with no new changes other than it is flaring. She is denying fevers, no nausea or vomiting. No diarrhea or constipation. No new urinary changes. She always has painful urination. Related Data Home Medications Medication Instructions Recorded Confirmed omeprazole 40 mg capsule,delayed 40 mg PO DAILY PRN 09/09/17 05/13/18 release ibuprofen 200 mg PO PRN PRN 02/03/18 05/13/18 Vitamin D3 1 cap PO DAILY 02/21/18 05/13/18 acetaminophen [Mapap 1 dose PO PRN PRN 02/21/18 05/13/18 (acetaminophen)] celecoxib 1 dose PO DAILY PRN 02/21/18 05/13/18 drospirenone-ethinyl estradiol 1 tab PO QPM 02/21/18 05/13/18 [Germania (28)] loratadine 10 mg PO DAILY PRN 05/03/18 05/23/18 [id number] carb-vit K 1 tab PO DAILY 05/03/18 05/13/18 [Women's Multivitamin] fluticasone propionate 1 spray INTRANASAL DIRECTED 05/13/18 05/13/18 cephalexin 500 mg PO QID 05/23/18 05/23/18 hydrocodone-acetaminophen 1 tab PO Q4-6H PRN 05/23/18 05/23/18 oxymetazoline [Nasal Decongestant 1 spray INTRANASAL PRN PRN 05/23/18 05/23/18 (oxymetazl)] Previous Rx's Medication Instructions Recorded lidocaine 2 % mucosal jelly 1 applictn TOP ONCE PRN #30 ml 09/01/17 tramadol [Ultram] 50 mg PO Q6H PRN #5 tab 05/13/18 promethazine 12.5 mg NE Q4-6H PRN #12 each 05/23/18 Allergies Allergy/AdvReac Type Severity Reaction Status Date / Time No Known Drug Allergies Allergy Verified 06/07/18 10:16 Review of Systems Review of Systems ROS Unobtainable: All systems reviewed & are unremarkable except as noted in HPI and below Constitutional Denies chills, Denies fever(s), Denies lethargy and Denies weakness Gastrointestinal Gastrointestinal: Reports abdominal pain, Denies change in bowel habits, Denies change in stool character, Denies diarrhea, Denies nausea and Denies vomiting Genitourinary Reports as per HPI, Denies urinary frequency, Reports dysuria, Denies flank pain, Denies urinary incontinence, Denies urinary hesitancy and Denies urinary urgency Musculoskeletal Denies back pain and Denies muscle weakness Neurologic Denies weakness [facility] Medical History Chronic cystitis with hematuria (Chronic) Depression (Chronic) Dysuria (Chronic) GERD (gastroesophageal reflux disease) (Chronic) History of pyelonephritis (Chronic) Migraines (Chronic) Recurrent UTI (Chronic) Surgical History History of cystoscopy (Resolved) History of tonsillectomy (Resolved) Social History Smoking Status: Current every day smoker Social History Smoking Status: Current every day smoker Exam Narrative Exam Narrative: GENERAL: Alert and oriented x three, obese, well-appearing female in mild distress. HEENT: Head normocephalic, atraumatic, EOMI, pupils reactive, face symmetric, moist mucous membranes NECK: Supple, full range of motion CARDIOVASCULAR: Regular rate and rhythm without murmurs, rubs or gallops. RESPIRATORY: Breath sounds equal bilaterally, no wheezes rales or rhonchi. ABDOMEN: Soft, mild generalized tenderness. Normoactive bowel sounds all 4 quadrants. No guarding or rebound, rigidity, no mass : No CVA tenderness EXTREMITIES: Normal range of motion, no clubbing or edema. Neurovascularly intact NEUROLOGICAL: Cranial nerves II through XII grossly intact. Moving all extremities. Normal gait. SKIN: Warm, dry, no petechiae, no rashes or lesions. Initial Vital Signs Initial Vital Signs: Vital Signs Temperature 97.4 F L 06/07/18 10:16 Pulse Rate 82 06/07/18 10:16 Respiratory Rate 16 06/07/18 10:16 Blood Pressure 108/80 06/07/18 10:16 Pulse Oximetry 99 06/07/18 10:16 Course Vital Signs - 8 hr 06/07/18 10:16 Temperature 97.4 F L Pulse Rate 82 Respiratory Rate 16 Blood Pressure 108/80 Pulse Oximetry 99 MDM - Abdominal Pain MDM Narrative Medical decision making narrative: Patient I discussed. She is comfortable not giving any urine or doing any lab work today. She feels is her typical pain but has just worsened. She is not requesting any pain medications at this time. She would like a work note for today. Patient chart was reviewed she has been here multiple times for abdominal pain. we did discuss signs and symptoms to watch for and reasons to return emergently, patient is comfortable with this plan. Discharge Plan Departure Patient Disposition: Home Clinical Impression: Chronic abdominal pain Discharge Date/Time: 06/07/18 10:42 Interventions: ED Discharge Assessment Last Done: 06/07/18 10:43 Instructions: DI for Abdominal Pain-Adult Activity Restrictions/Additional Instructions: Follow-up with your physician and with your current appointments as scheduled. Continue home medications as prescribed. Return to the emergency department for new fevers, persistent vomiting, new changes to abdominal pain, black or bloody stools, passing out or other new or concerning symptoms. Prescriptions: No Action lidocaine HCl 2 % jelly 1 applictn TOP ONCE PRN (Reason: pain) Qty: 30 RF: 3 omeprazole 40 mg capsule,delayed release(DR/EC) 40 mg PO DAILY PRN (Reason: Heartburn) RF: 0 ibuprofen 200 mg Tablet 200 mg PO PRN PRN (Reason: pain) RF: 0 loratadine 10 mg tablet 10 mg PO DAILY PRN (Reason: Allergy Symptoms) RF: 0 Women's Multivitamin 18 mg iron-400 mcg-500 mg Tablet 1 tab PO DAILY RF: 0 acetaminophen [Mapap (acetaminophen)] 325 mg tablet 1 dose PO PRN PRN (Reason: Fever Or Pain) RF: 0 celecoxib 100 mg capsule 1 dose PO DAILY PRN (Reason: pain) RF: 0 drospirenone-ethinyl estradiol [Germania (28)] 3-0.03 mg tablet 1 tab PO QPM RF: 0 Vitamin D3 1 cap PO DAILY RF: 0 fluticasone propionate 50 mcg/actuation spray,suspension 1 spray Intranasal DIRECTED RF: 0 tramadol [Ultram] 50 mg tablet 50 mg PO Q6H PRN (Reason: pain) Qty: 5 RF: 0 hydrocodone-acetaminophen 5-325 mg tablet 1 tab PO Q4-6H PRN (Reason: pain) RF: 0 cephalexin 500 mg capsule 500 mg PO QID RF: 0 oxymetazoline [Nasal Decongestant (oxymetazl)] 0.05 % spray,non-aerosol 1 spray Intranasal PRN PRN (Reason: Congestion) RF: 0 promethazine 12.5 mg suppository 12.5 mg NE Q4-6H PRN (Reason: nausea and vomiting) Qty: 12 RF: 0 Referrals: Keron Chambers [Primary Care Provider] - Stand Alone Forms: Work Release Note
--- NOTE | 2018-06-07 10:43 | ED_ITS ---
HPI - Abdominal Pain General Chief Complaint: Abdominal Pain Stated Complaint: abdominal/back sharp pains Time Seen by Provider: 06/07/18 10:30 Source: patient Mode of arrival: ambulatory Limitations: no limitations History of Present Illness HPI narrative: This is a 23-year-old female comes in complaint abdominal pain patient is requesting a work note. She states she has had chronic abdominal pain she has had extensive workups including laparoscopic surgery, she goes to pelvic floor PT she is being evaluated for interstitial cystitis as well as been referred for urodynamic testing. Patient has had multiple sets of imaging, lab work. Patient has not had any new changes to her abdominal pain. She tried to call the [facility] to be seen today for a work note to be home but she was referred to the ER. They were unable to see her. Patient does not wish to do any imaging or workup at this time. She states is her typical pain with no new changes other than it is flaring. She is denying fevers, no nausea or vomiting. No diarrhea or constipation. No new urinary changes. She always has painful urination. Related Data Home Medications Medication Instructions Recorded Confirmed omeprazole 40 mg capsule,delayed 40 mg PO DAILY PRN 09/09/17 05/13/18 release ibuprofen 200 mg PO PRN PRN 02/03/18 05/13/18 Vitamin D3 1 cap PO DAILY 02/21/18 05/13/18 acetaminophen [Mapap 1 dose PO PRN PRN 02/21/18 05/13/18 (acetaminophen)] celecoxib 1 dose PO DAILY PRN 02/21/18 05/13/18 drospirenone-ethinyl estradiol 1 tab PO QPM 02/21/18 05/13/18 [Germania (28)] loratadine 10 mg PO DAILY PRN 05/03/18 05/23/18 [id number]-Ca carb-vit K 1 tab PO DAILY 05/03/18 05/13/18 [Women's Multivitamin] fluticasone propionate 1 spray INTRANASAL DIRECTED 05/13/18 05/13/18 cephalexin 500 mg PO QID 05/23/18 05/23/18 hydrocodone-acetaminophen 1 tab PO Q4-6H PRN 05/23/18 05/23/18 oxymetazoline [Nasal Decongestant 1 spray INTRANASAL PRN PRN 05/23/18 05/23/18 (oxymetazl)] Previous Rx's Medication Instructions Recorded lidocaine 2 % mucosal jelly 1 applictn TOP ONCE PRN #30 ml 09/01/17 tramadol [Ultram] 50 mg PO Q6H PRN #5 tab 05/13/18 promethazine 12.5 mg ID Q4-6H PRN #12 each 05/23/18 Allergies Allergy/AdvReac Type Severity Reaction Status Date / Time No Known Drug Allergies Allergy Verified 06/07/18 10:16 Review of Systems Review of Systems ROS Unobtainable: All systems reviewed & are unremarkable except as noted in HPI and below Constitutional Denies chills, Denies fever(s), Denies lethargy and Denies weakness Gastrointestinal Gastrointestinal: Reports abdominal pain, Denies change in bowel habits, Denies change in stool character, Denies diarrhea, Denies nausea and Denies vomiting Genitourinary Reports as per HPI, Denies urinary frequency, Reports dysuria, Denies flank pain, Denies urinary incontinence, Denies urinary hesitancy and Denies urinary urgency Musculoskeletal Denies back pain and Denies muscle weakness Neurologic Denies weakness [facility] Medical History Chronic cystitis with hematuria (Chronic) Depression (Chronic) Dysuria (Chronic) GERD (gastroesophageal reflux disease) (Chronic) History of pyelonephritis (Chronic) Migraines (Chronic) Recurrent UTI (Chronic) Surgical History History of cystoscopy (Resolved) History of tonsillectomy (Resolved) Social History Smoking Status: Current every day smoker Social History Smoking Status: Current every day smoker Exam Narrative Exam Narrative: GENERAL: Alert and oriented x three, obese, well-appearing female in mild distress. HEENT: Head normocephalic, atraumatic, EOMI, pupils reactive, face symmetric, moist mucous membranes NECK: Supple, full range of motion CARDIOVASCULAR: Regular rate and rhythm without murmurs, rubs or gallops. RESPIRATORY: Breath sounds equal bilaterally, no wheezes rales or rhonchi. ABDOMEN: Soft, mild generalized tenderness. Normoactive bowel sounds all 4 quadrants. No guarding or rebound, rigidity, no mass : No CVA tenderness EXTREMITIES: Normal range of motion, no clubbing or edema. Neurovascularly intact NEUROLOGICAL: Cranial nerves II through XII grossly intact. Moving all extremities. Normal gait. SKIN: Warm, dry, no petechiae, no rashes or lesions. Initial Vital Signs Initial Vital Signs: Vital Signs Temperature 97.4 F L 06/07/18 10:16 Pulse Rate 82 06/07/18 10:16 Respiratory Rate 16 06/07/18 10:16 Blood Pressure 108/80 06/07/18 10:16 Pulse Oximetry 99 06/07/18 10:16 Course Vital Signs - 8 hr 06/07/18 10:16 Temperature 97.4 F L Pulse Rate 82 Respiratory Rate 16 Blood Pressure 108/80 Pulse Oximetry 99 MDM - Abdominal Pain MDM Narrative Medical decision making narrative: Patient I discussed. She is comfortable not giving any urine or doing any lab work today. She feels is her typical pain but has just worsened. She is not requesting any pain medications at this time. She would like a work note for today. Patient chart was reviewed she has been here multiple times for abdominal pain. we did discuss signs and symptoms to watch for and reasons to return emergently, patient is comfortable with this plan. Discharge Plan Departure Patient Disposition: Home Clinical Impression: Chronic abdominal pain Discharge Date/Time: 06/07/18 10:42 Interventions: ED Discharge Assessment Last Done: 06/07/18 10:43 Instructions: DI for Abdominal Pain-Adult Activity Restrictions/Additional Instructions: Follow-up with your physician and with your current appointments as scheduled. Continue home medications as prescribed. Return to the emergency department for new fevers, persistent vomiting, new changes to abdominal pain, black or bloody stools, passing out or other new or concerning symptoms. Prescriptions: No Action lidocaine HCl 2 % jelly 1 applictn TOP ONCE PRN (Reason: pain) Qty: 30 RF: 3 omeprazole 40 mg capsule,delayed release(DR/EC) 40 mg PO DAILY PRN (Reason: Heartburn) RF: 0 ibuprofen 200 mg Tablet 200 mg PO PRN PRN (Reason: pain) RF: 0 loratadine 10 mg tablet 10 mg PO DAILY PRN (Reason: Allergy Symptoms) RF: 0 Women's Multivitamin 18 mg iron-400 mcg-500 mg Tablet 1 tab PO DAILY RF: 0 acetaminophen [Mapap (acetaminophen)] 325 mg tablet 1 dose PO PRN PRN (Reason: Fever Or Pain) RF: 0 celecoxib 100 mg capsule 1 dose PO DAILY PRN (Reason: pain) RF: 0 drospirenone-ethinyl estradiol [Germania (28)] 3-0.03 mg tablet 1 tab PO QPM RF: 0 Vitamin D3 1 cap PO DAILY RF: 0 fluticasone propionate 50 mcg/actuation spray,suspension 1 spray Intranasal DIRECTED RF: 0 tramadol [Ultram] 50 mg tablet 50 mg PO Q6H PRN (Reason: pain) Qty: 5 RF: 0 hydrocodone-acetaminophen 5-325 mg tablet 1 tab PO Q4-6H PRN (Reason: pain) RF: 0 cephalexin 500 mg capsule 500 mg PO QID RF: 0 oxymetazoline [Nasal Decongestant (oxymetazl)] 0.05 % spray,non-aerosol 1 spray Intranasal PRN PRN (Reason: Congestion) RF: 0 promethazine 12.5 mg suppository 12.5 mg ID Q4-6H PRN (Reason: nausea and vomiting) Qty: 12 RF: 0 Referrals: Keron Chambers [Primary Care Provider] - Stand Alone Forms: Work Release Note
== END 2018-06-07 10:42 | disposition home or self-care (01) ==
PROVIDERS: Emergency Provider Emergency Medicine; PCP Family Medicine
DX: R10.9 Unspecified abdominal pain (principal)
CPT/HCPCS: 99282

== ENCOUNTER 2018-08-27 22:11 | Emergency (ER) | payer OTHER, SELFPAY ==
[2018-08-27 22:15] VITALS: BP 128/68; PULSE 109; RESP 18; TEMP 36.8; O2SAT 99; BMI 32.8
[2018-08-27 22:51] LABS: Bacteria Urine Many (>30); Culture Indicated Urine Specimen Cultured; RBC Urine 0-1/HPF (0-5/HPF); Squamous Epithelial Cell Urine 1-5 /HPF (0-5/HPF); WBC Urine 30-100/HPF (0-5/HPF)
--- NOTE | 2018-08-27 22:57 | ED_ITS ---
HPI - Female Genitourinary General Chief complaint: Urogenital-Female Stated complaint: states she has a kidney infection Time Seen by Provider: 08/27/18 22:18 Source: patient Mode of arrival: ambulatory Limitations: no limitations History of Present Illness HPI Narrative: The patient reports daily dysuria, she has been under clinical physician assistant evaluation is now in the process seeing a urologist. Her current evaluation sounds like she is being evaluated for interstitial cystitis, she is not formally diagnosed. She has had significant increasing dysuria and urgency over the last 3 days. Today she developed left flank pain. She has lower abdominal pain increasing. She has no fever or chills. She has no nausea, vomiting or diarrhea. With the current chronic urologic problems, she does occasionally have UTIs. She is currently on control. Her menstrual cycles are regular. She tells me she is not . Related Data Home Medications Medication Instructions Recorded Confirmed omeprazole 40 mg capsule,delayed 40 mg PO DAILY PRN 09/09/17 05/13/18 release ibuprofen 200 mg PO PRN PRN 02/03/18 05/13/18 Vitamin D3 1 cap PO DAILY 02/21/18 05/13/18 acetaminophen [Mapap 1 dose PO PRN PRN 02/21/18 05/13/18 (acetaminophen)] celecoxib 1 dose PO DAILY PRN 02/21/18 05/13/18 drospirenone-ethinyl estradiol 1 tab PO QPM 02/21/18 05/13/18 [Germania (28)] loratadine 10 mg PO DAILY PRN 05/03/18 05/23/18 [id number] carb-vit K 1 tab PO DAILY 05/03/18 05/13/18 [Women's Multivitamin] fluticasone propionate 1 spray INTRANASAL DIRECTED 05/13/18 05/13/18 cephalexin 500 mg PO QID 05/23/18 05/23/18 hydrocodone-acetaminophen 1 tab PO Q4-6H PRN 05/23/18 05/23/18 oxymetazoline [Nasal Decongestant 1 spray INTRANASAL PRN PRN 05/23/18 05/23/18 (oxymetazl)] Previous Rx's Medication Instructions Recorded lidocaine 2 % mucosal jelly 1 applictn TOP ONCE PRN #30 ml 06/27/18 tramadol [Ultram] 50 mg PO Q6H PRN #5 tab 05/13/18 promethazine 12.5 mg NC Q4-6H PRN #12 each 05/23/18 sulfamethoxazole-trimethoprim 1 tab PO Q12H 7 Days #14 tab 08/28/18 [Bactrim DS] Allergies Allergy/AdvReac Type Severity Reaction Status Date / Time No Known Drug Allergies Allergy Verified 08/27/18 22:32 Review of Systems Review of Systems ROS Unobtainable: All systems reviewed & are unremarkable except as noted in HPI and below Constitutional Denies chills, Denies fever(s), Denies headache(s), Denies lethargy and Denies weakness ENT Ears, Nose, Mouth, and Throat: Denies headache(s) and Denies sore throat Cardiovascular Denies chest pain, Denies irregular heart rhythm, Denies lightheadedness, Denies palpitations, Denies dyspnea, Denies dyspnea on exertion and Denies orthopnea Respiratory Denies cough, Denies dyspnea, Denies dyspnea on exertion and Denies wheezing Gastrointestinal Gastrointestinal: Denies change in bowel habits, Denies diarrhea, Denies nausea and Denies vomiting Comments: Suprapubic and left lower quadrant pain. Genitourinary Reports dysuria, Reports urinary urgency and Denies vaginal discharge Musculoskeletal Denies back pain, Denies numbness and Denies tingling Integumentary/Breasts Denies pruritus, Denies erythema, Denies rash and Denies wounds Neurologic Denies headache(s), Denies numbness, Denies tingling and Denies weakness Endocrine Denies palpitations Allergic/Immunologic Denies wheezing [facility] Medical History Chronic cystitis with hematuria (Chronic) Depression (Chronic) Dysuria (Chronic) GERD (gastroesophageal reflux disease) (Chronic) History of pyelonephritis (Chronic) Migraines (Chronic) Recurrent UTI (Chronic) Surgical History History of cystoscopy (Resolved) History of tonsillectomy (Resolved) Social History Smoking Status: Current every day smoker Social History Smoking Status: Current every day smoker Exam Initial Vital Signs Initial Vital Signs: Vital Signs Temperature 98.3 F 08/27/18 22:15 Pulse Rate 109 H 08/27/18 22:15 Respiratory Rate 18 08/27/18 22:15 Blood Pressure 128/68 08/27/18 22:15 Pulse Oximetry 99 08/27/18 22:15 Const General: cooperative and well developed Nutritional Appearance: well nourished Orientation: alert, awake, oriented x3 and not confused HENMT Mouth: oral mucosae normal Throat: posterior oropharynx normal Eyes General: appearance normal, both eyes and all related structures Resp Effort & Inspection: normal respiratory effort and able to speak in complete sentences Auscultation: clear to auscultation bilaterally, no rales, no rhonchi and no wheezes Cardio Rate: regular rate Rhythm: regular rhythm Heart Sounds: no click, no gallops, no murmurs and no rubs Pulses: normal peripheral pulses GI Inspection: non-distended Palpation: soft, no hepatosplenomegaly, No guarding, No pulsatile mass and No tender Auscultation: normal bowel sounds Back/Spine/Pelvis Back: CVA tenderness left Skin General: no rashes or lesions noted Neuro General: alert, awake, oriented x3 and no focal motor deficits Course Course Narrative: The patient has received an IV fluid bolus, she has received Toradol for pain and Rocephin for left pyelonephritis. At the time of discharge her pain has reduced significantly, she is feeling much better. Orders Ordered: ED Orders 08/27/18 22:17 Urine Culture Stat Urine Microscopic Stat 08/27/18 23:25 Complete Blood Count AUTO DIFF Stat Comprehensive Metabolic Panel Stat Lipase Stat Discontinued Medications Sodium Chloride (Normal Saline 0.9%) 1,000 mls @ 1,000 mls/hr IV BOLUS ONE Stop: 08/27/18 23:59 Last Infusion: 08/28/18 01:13 Dose: 0 mls/hr Admin: 08/27/18 23:23 Dose: 1,000 mls/hr Ceftriaxone Sodium/Dextrose (Rocephin) 1 gm in 50 mls @ 100 mls/hr IV NOW ONE Stop: 08/28/18 00:15 Last Infusion: 08/28/18 00:29 Dose: 0 mls/hr Admin: 08/27/18 23:50 Dose: 100 mls/hr Ketorolac Tromethamine (Toradol) 30 mg IV NOW ONE Stop: 08/27/18 23:01 Last Admin: 08/27/18 23:23 Dose: 30 mg Vital Signs - 8 hr 08/27/18 22:15 08/28/18 01:20 Temperature 98.3 F 97.8 F Pulse Rate 109 H 85 Respiratory Rate 18 16 Blood Pressure 128/68 Blood Pressure [Right Arm] 116/71 Pulse Oximetry 99 98 MDM - Female Genitourinary Lab Data Result diagrams: 08/27/18 23:25 08/27/18 23:25 Lab Results 08/27/18 08/27/18 08/27/18 Range/Units 22:17 23:25 23:25 WBC 13.4 H (4.5-11.0) X10^3/uL RBC 4.43 (4.0-5.2) X10^6/uL Hgb 12.9 (12.0-16.0) g/dL Hct 38.9 (36-46) % MCV 87.9 (80-100) fL MCH 29.2 (26-34) PG MCHC 33.2 (30-36) % RDW 13.1 (11.6-14.8) % Plt Count 371 (150-400) X10^3/uL Neut % (Auto) 59.5 (50-75) % Lymph % (Auto) 31.6 (25-40) % [place] % (Auto) 6.9 (3-14) % Eos % (Auto) 1.2 L (2-4) % Baso % (Auto) 0.8 (0-2) % Neut # (Auto) 8000 H (1957-6664) /uL Lymph # (Auto) 4200 (7426-7976) /uL [place] # (Auto) 900 (0-900) /uL Eos # (Auto) 200 (0-450) /uL Baso # (Auto) 100 (0-100) /uL Sodium 141 (137-145) mmol/L Potassium 3.8 (3.4-5.1) mmol/L Chloride 103 (98-107) mmol/L Carbon Dioxide 28 (22-32) mmol/L BUN 10 (7-17) mg/dL Creatinine 0.70 (0.52-1.04) mg/dL Estimated GFR > 60.0 (>60) mL/min BUN/Creatinine Ratio 14.3 (6-22) Glucose 102 H (70-100) mg/dL Calcium 9.5 (8.4-10.2) mg/dL Total Bilirubin 0.4 (0.2-1.3) mg/dL AST 22 (14-36) IU/L ALT 23 (9-52) IU/L Alkaline Phosphatase 84 (38-126) U/L Total Protein 7.6 (6.3-8.2) g/dL Albumin 4.3 (3.5-5.0) g/dL Globulin 3.3 (1.7-4.1) g/dL Albumin/Globulin Ratio 1.3 (1.0-2.8) Lipase 51 (23-300) U/L Urine RBC 0-1/hpf (0-5/HPF) Urine WBC 30-100/hpf H (0-5/HPF) Ur Squamous Epith Cells 1-5 /hpf (0-5/HPF) Urine Bacteria Many (>30) H (None) Ur Culture Indicated? Specimen cultured Point of Care Testing Test Results Negative Urine Dip Bedside Urine Glucose Negative Bedside Urine Bilirubin - Negative Bedside Urine Ketone - Negative Urine Specific [place] 1.020 Bedside Urine Occult Blood +/- Bedside Urine pH 6.0 Bedside Urine Protein + 30 Bedside Urine Urobilinogen - Negative Bedside Urine Nitrite + Positive Bedside Urine Leukocytes +++ 500 Esterase Discharge Plan Departure Patient Disposition: Home Clinical Impression: Pyelonephritis Instructions: DI for Kidney Infection Activity Restrictions/Additional Instructions: Drink plenty of fluids, stay well hydrated. Bactrim DS 2 times daily for the urinary infection. Take Tylenol or Advil as necessary for pain. No work today, follow up with your doctor next week. Return the ER if she develops increasing pain or fever. Prescriptions: New sulfamethoxazole-trimethoprim [Bactrim DS] 800-160 mg tablet 1 tab PO Q12H 7 Days Qty: 14 RF: 0 No Action lidocaine HCl 2 % jelly 1 applictn TOP ONCE PRN (Reason: pain) Qty: 30 RF: 3 omeprazole 40 mg capsule,delayed release(DR/EC) 40 mg PO DAILY PRN (Reason: Heartburn) RF: 0 ibuprofen 200 mg Tablet 200 mg PO PRN PRN (Reason: pain) RF: 0 loratadine 10 mg tablet 10 mg PO DAILY PRN (Reason: Allergy Symptoms) RF: 0 Women's Multivitamin 18 mg iron-400 mcg-500 mg Tablet 1 tab PO DAILY RF: 0 acetaminophen [Mapap (acetaminophen)] 325 mg tablet 1 dose PO PRN PRN (Reason: Fever Or Pain) RF: 0 celecoxib 100 mg capsule 1 dose PO DAILY PRN (Reason: pain) RF: 0 drospirenone-ethinyl estradiol [[place] (28)] 3-0.03 mg tablet 1 tab PO QPM RF: 0 Vitamin D3 1 cap PO DAILY RF: 0 fluticasone propionate 50 mcg/actuation spray,suspension 1 spray Intranasal DIRECTED RF: 0 tramadol [Ultram] 50 mg tablet 50 mg PO Q6H PRN (Reason: pain) Qty: 5 RF: 0 hydrocodone-acetaminophen 5-325 mg tablet 1 tab PO Q4-6H PRN (Reason: pain) RF: 0 cephalexin 500 mg capsule 500 mg PO QID RF: 0 oxymetazoline [Nasal Decongestant (oxymetazl)] 0.05 % spray,non-aerosol 1 spray Intranasal PRN PRN (Reason: Congestion) RF: 0 promethazine 12.5 mg suppository 12.5 mg NC Q4-6H PRN (Reason: nausea and vomiting) Qty: 12 RF: 0 Referrals: Keron Chambers [Primary Care Provider] - Stand Alone Forms: Work Release Note
[2018-08-27] MEDS: SODIUM CHLORIDE 0.9% 1,000 ML 1000 ML IV (23:23)
[2018-08-27] MEDS: KETOROLAC 60 MG/2 ML VIAL 30 MG IV (23:23)
[2018-08-27 23:40] LABS: Add Manual Diff / Slide Review NO; Basophils Absolute Auto 100 /uL (0-100); Basophils Percent Auto 0.8 % (0-2); Eosinophils Absolute Auto 200 /uL (0-450); Eosinophils Percent Auto 1.2 % (2-4); Hematocrit 38.9 % (36-46); Hemoglobin 12.9 g/dL (12.0-16.0); Lymphocytes Absolute Auto 4200 /uL (1100-4500); Lymphocytes Percent Auto 31.6 % (25-40); Mean Corpuscular HGB Conc 33.2 % (30-36); Mean Corpuscular Hemoglobin 29.2 PG (26-34); Mean Corpuscular Volume 87.9 fL (80-100); Monocytes Absolute Auto 900 /uL (0-900); Monocytes Percent Auto 6.9 % (3-14); Neutrophils Absolute Auto 8000 /uL (1500-7000); Neutrophils Percent Auto 59.5 % (50-75); Platelet Count 371 X10^3/uL (150-400); Red Blood Cell Count 4.43 X10^6/uL (4.0-5.2); Red Cell Distribution Width 13.1 % (11.6-14.8); White Blood Cell Count 13.4 X10^3/uL (4.5-11.0)
[2018-08-27 23:47] LABS: Alanine Aminotransferase 23 IU/L (9-52); Albumin 4.3 g/dL (3.5-5.0); Albumin Globulin Ratio 1.3 (1.0-2.8); Alkaline Phosphatase 84 U/L (38-126); Aspartate Aminotransferase 22 IU/L (14-36); BUN Creatinine Ratio 14.3 (6-22); Bilirubin Total 0.4 mg/dL (0.2-1.3); Blood Urea Nitrogen 10 mg/dL (7-17); Calcium 9.5 mg/dL (8.4-10.2); Carbon Dioxide 28 mmol/L (22-32); Chloride 103 mmol/L (98-107); Estimated Glomerular Filt Rate > 60.0 mL/min (>60); Globulin 3.3 g/dL (1.7-4.1); Glucose 102 mg/dL (70-100); HEMOLYSIS < 15 (0-50); Lipase 51 U/L (23-300); Potassium 3.8 mmol/L (3.4-5.1); Sodium 141 mmol/L (137-145); Total Protein 7.6 g/dL (6.3-8.2)
[2018-08-27] MEDS: CEFTRIAXONE 1 GM/50 ML FROZ.PIGGY IV (23:50)
[2018-08-28 01:20] VITALS: BP 116/71; PULSE 85; RESP 16; TEMP 36.6; O2SAT 98
== END 2018-08-28 01:28 | disposition home or self-care (01) ==
PROVIDERS: Emergency Provider Emergency Medicine; PCP Family Medicine
DX: N12 Tubulo-interstitial nephritis, not specified as acute or chronic (principal)
CPT/HCPCS: 36591; 80053; 81003; 81015; 81025; 83690; 85025; 87077; 87086; 87186; 96361; 96365; 96375; 99283; 99284; J1885